=== PATIENT | female | born 1955 | race Caucasian/White ===

== ENCOUNTER → 2016-07-22 | Outpatient (CLI) | payer BC ==
[~2016-07-22] MED LIST: CHOLCAP5 PO; CIPR-255 PO; FINA5TAB PO; HYDR-5688 PO; LACT1CAP6 PO; LEVO200T PO; MELO7.5T5 PO; OMEP20TA PO; ONDA8TAB6 PO; TAMS0.4C38 PO; TRAM-10 PO; TRAZ50TA35 PO
== END | disposition home or self-care (01) ==
LOC: C.PAPS 10:16
PROVIDERS: ATTEND Obstetrics & Gynecology
DX: Z01.419 Encounter for gynecological examination (general) (routine) without abnormal findings (principal)

== ENCOUNTER → 2016-08-27 | Outpatient (CLI) | payer BC ==
--- NOTE | 2016-08-28 14:24 | MAMMOGRAPHY REPORT ---
BILATERAL DIGITAL SCREENING MAMMOGRAM TOMOSYNTHESIS WITH CAD: 08/27/2016 CLINICAL HISTORY: Routine screening. Patient has no complaints. TECHNIQUE: Breast tomosynthesis in addition to standard 2D mammography was performed. Current study was also evaluated with a Computer Aided Detection (CAD) system. COMPARISON: Comparison is made to exams dated: 05/03/2015 mammogram, 05/01/2014 mammogram, 02/17/2013 ma mmogram, 12/31/2010 mammogram, 12/24/2009 mammogram - [facility], and 12/07/2008. BREAST COMPOSITION: There are scattered areas of fibroglandular density in both breasts. FINDINGS: There are stable punctate benign-appearing microcalcifications in the superior aspect of e ach breast. Stable asymmetries in the lateral right breast. No developing mass, architectural disto rtion or cluster of suspicious microcalcifications is seen in either breast. IMPRESSION: ACR BI-RADS CATEGORY 2: BENIGN There is no mammographic evidence of malignancy. A 1 year screening mammogram is recommended. The pa tient will receive written notification of the results. Approximately 10% of breast cancers are not detected with mammography. A negative mammographic report should not delay biopsy if a clinically suggestive mass is present. Shirley Hunt M.D. ay/:08/27/2016 16:18:31 Rail Detector Car Operator: Tahmina PRUITT(Erasto)(Cezar), [facility] letter sent: Normal 1/2 BI-RADS Code: ACR BI-RADS Category 2: Benign
== END | disposition home or self-care (01) ==
LOC: C.MAMM 07:09
PROVIDERS: ATTEND Obstetrics & Gynecology
DX: Z12.31 Encounter for screening mammogram for malignant neoplasm of breast (principal); R92.0 Mammographic microcalcification found on diagnostic imaging of breast

== ENCOUNTER 2017-03-01 21:44 | Emergency (ER) | payer BC ==
[~2017-03-01] VITALS: Ht 154.9 cm; Wt 101.5 kg
[~2017-03-01 21:44] MED LIST changes: -CIPR-255 PO; -HYDR-5688 PO; -MELO7.5T5 PO; -TAMS0.4C38 PO; -TRAM-10 PO
[2017-03-01 21:47] VITALS: TEMP 36.9; Ht 154.9 cm; Wt 101.5 kg
[2017-03-01] MEDS ORDERED: SODIUM CHLORIDE 0.9% 1000ML 1,000 ML IV STA (22:09)
[2017-03-01] MEDS ORDERED: HYDROmorphone INJ 0.5 MG/0.5 ML SYR IV STA (22:09)
[2017-03-01] MEDS ORDERED: ONDANSETRON INJ 2 MG/ML 2 ML VIAL IV STA (22:09)
[2017-03-01 22:38] LABS: BASO % 0.6 %; BASO ABS # 0.07 K/uL (0-0.2); COMPLETE YES; EOS % 0.8 %; HEMATOCRIT 43.7 % (37-47); IG% 0.4 %; LYMPH % 17.8 %; LYMPH ABS # 2.21 K/uL (1.2-3.4); MEAN CELL VOLUME 88.1 fL (80-100); MEAN CORPUSCULAR HEMOGLOBIN 29.2 pg (25-34); MEAN CORPUSCULAR HGB CONC 33.2 g/dl (32-36); MEAN PLATELET VOLUME 9.4 fL (7.4-10.4); MONO % 7.3 %; NEUT % 73.1 %; PLATELET COUNT 307 K/uL (130-400); RED BLOOD COUNT 4.96 M/uL (4.2-5.4); WHITE BLOOD COUNT 12.44 K/uL (4.8-10.8)
--- NOTE | 2017-03-01 22:38 | EMERGENCY ROOM VISIT NOTE ---
History Report prepared by Venancio: Afia Davies Under the Supervision of: Dr. Nishant Reza D.O. First contact with patient: 22:03 Chief Complaint: KIDNEY STONE Stated Complaint: KIDNEY STONE History of Present Illness The patient is a 61 year old female who presents to the Emergency Room with complaints of constant right flank pain starting 1999 today. The patient had been having some back pain over the past 2 days. She thought this pain was due to exertion. This morning she woke up with bladder pain. She found that her urine was brown. She went to the walk in clinic around 1100 today. She was given Mobic, Zofran, and Flomax. She had an ultrasound, but has not yet learned of the results. Around 1999, she started having constant 10/10 right flank pain. She reports nausea. She has a history of kidney stones. Her current pain feels like a kidney stone. Source of History: patient Onset: 1999 Position: back (right flank) Symptom Intensity: 10/10 Quality: other (kidney stone pain) Timing: constant Associated Symptoms: + nausea, + urinary symptoms Review of Systems See HPI for pertinent positives and negatives. A total of ten systems were reviewed and were otherwise negative. Past Medical & Surgical Medical Problems: (1) Kidney stones Surgical Problems: (1) Post-operative state (2) S/P cholecystectomy (3) S/P hysterectomy Family History FH: cancer FH: heart disease Hypertension Social History Smoking Status: Never Smoker Alcohol Use: none Drug Use: none Marital Status: Housing Status: lives with significant other Occupation Status: employed Current/Historical Medications Scheduled Cholecalciferol (Vitamin D3), 5,000 UNITS PO DAILY Finasteride (Proscar), 5 MG PO HS Levothyroxine Sodium (Synthroid), 200 MCG PO HS Meloxicam (Mobic), 1 TAB PO DAILY Omeprazole (Omeprazole), 20 MG PO BID Trazodone Hcl (Trazodone), 50 MG PO HS Scheduled PRN Ondansetron Hcl (Zofran), 8 MG PO Q8 PRN for Nausea Tramadol (Ultram), 50 MG PO QD PRN for Pain Miscellaneous Medications Tamsulosin Hcl (Flomax), 0.4 MG PO Allergies Coded Allergies: NSAIDs (Verified Allergy, Severe, GI SYMPTOMS, 03/01/17) Aspirin (Verified Adverse Reaction, Mild, UPSET STOMACH, 03/01/17) Physical Exam Vital Signs Date Time Temp Pulse Resp B/P (MAP) Pulse Ox O2 Delivery O2 Flow Rate FiO2 03/01/17 21:47 36.9 70 20 151/90 94 Room Air Physical Exam GENERAL: Awake, alert, writhing in pain, holding right back. HENT: Normocephalic, atraumatic. Oropharynx unremarkable. EYES: Normal conjunctiva. Sclera non-icteric. NECK: Supple. No nuchal rigidity. FROM. No JVD. RESPIRATORY: Clear to auscultation. CARDIAC: Regular rate, normal rhythm. Extremities warm and well perfused. Pulses equal. ABDOMEN: Soft, non-distended. No tenderness to palpation. No rebound or guarding. No masses. RECTAL: Deferred. MUSCULOSKELETAL: Chest examination reveals no tenderness. The back is symmetrical on inspection without obvious abnormality. There is CVA tenderness to palpation. No joint edema. LOWER EXTREMITIES: Calves are equal size bilaterally and non-tender. No edema. No discoloration. NEURO: Normal sensorium. No sensory or motor deficits noted. SKIN: No rash or jaundice noted. Medical Decision & Procedures ER Provider Diagnostic Interpretation: Radiology results as stated below per my review and radiologist interpretation: CT SCAN OF THE ABDOMEN AND PELVIS WITHOUT CONTRAST CLINICAL HISTORY: Right flank pain hematuria COMPARISON STUDY: Ultrasound dated 03/01/2017, CT scan dated 01/03/2016 TECHNIQUE: CT scan of the abdomen and pelvis was performed from the lung bases to the proximal femurs. Images are reviewed in the axial, sagittal, and coronal planes. IV contrast was not administered for this examination. A dose lowering technique was utilized adhering to the principles of ALARA. CT DOSE: 1416.91 mGy.cm FINDINGS: Lower chest: The heart is normal in size and configuration, without pericardial effusion. The lung bases and pleural spaces are clear. Liver: The unenhanced liver is normal in size, contour, and attenuation. There is no intrahepatic biliary ductal dilatation. Gallbladder: Not visualized and presumed surgically absent. Stable mild dilatation of the common bile duct Spleen: Normal in size and attenuation. Pancreas: Unremarkable. Adrenal glands: Unremarkable. Kidneys: There is a punctate nonobstructing lower pole right renal calculus. There is right-sided hydronephrosis and perinephric edema. There is right-sided ureteral dilatation. There is a 3 mm distal right ureteral calculus. Bowel: There are no transition zones indicate bowel obstruction. The appendix appears normal. There is no acute diverticulitis. There are scattered colonic diverticula present. Peritoneum: There is no intraperitoneal free air or abdominal ascites. 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 Adenopathy: None. A hypodense structure located just superior to the left inguinal canal, is likely postsurgical. Pelvic viscera: The uterus appears surgically absent Skeletal structures: No destructive osseous lesions are seen. IMPRESSION: 1. Right-sided hydronephrosis and hydroureter. 3 mm obstructing distal right ureteral calculus 2. No evidence of bowel obstruction. No evidence of free air 3. No evidence of acute appendicitis. No evidence of acute diverticulitis 4. Stable fat-containing left-sided spigelian hernia Electronically signed by: Ronnell Frausto M.D. 03/01/2017 10:41 PM Dictated Date/Time: 03/01/2017 10:34 PM Laboratory Results 03/01/17 22:20 Red Blood Count 4.96, Mean Corpuscular Volume 88.1, Mean Corpuscular Hemoglobin 29.2, Mean Corpuscular Hemoglobin Concent 33.2, Mean Platelet Volume 9.4, Neutrophils (%) (Auto) 73.1, Lymphocytes (%) (Auto) 17.8, Monocytes (%) (Auto) 7.3, Eosinophils (%) (Auto) 0.8, Basophils (%) (Auto) 0.6, Neutrophils # (Auto) 9.10, Lymphocytes # (Auto) 2.21, Monocytes # (Auto) 0.91, Eosinophils # (Auto) 0.10, Basophils # (Auto) 0.07 03/01/17 22:20 Test 03/01/17 22:20 White Blood Count 12.44 K/uL (4.8-10.8) Red Blood Count 4.96 M/uL (4.2-5.4) Hemoglobin 14.5 g/dL (12.0-16.0) Hematocrit 43.7 % (37-47) Mean Corpuscular Volume 88.1 fL (80-100) Mean Corpuscular Hemoglobin 29.2 pg (25-34) Mean Corpuscular Hemoglobin Concent 33.2 g/dl (32-36) Platelet Count 307 K/uL (130-400) Mean Platelet Volume 9.4 fL (7.4-10.4) Neutrophils (%) (Auto) 73.1 % Lymphocytes (%) (Auto) 17.8 % Monocytes (%) (Auto) 7.3 % Eosinophils (%) (Auto) 0.8 % Basophils (%) (Auto) 0.6 % Neutrophils # (Auto) 9.10 K/uL (1.4-6.5) Lymphocytes # (Auto) 2.21 K/uL (1.2-3.4) Monocytes # (Auto) 0.91 K/uL (0.11-0.59) Eosinophils # (Auto) 0.10 K/uL (0-0.5) Basophils # (Auto) 0.07 K/uL (0-0.2) RDW Standard Deviation 44.5 fL (36.4-46.3) RDW Coefficient of Variation 13.8 % (11.5-14.5) Immature Granulocyte % (Auto) 0.4 % Immature Granulocyte # (Auto) 0.05 K/uL (0.00-0.02) Urine Color ORANGE Urine Appearance SLIGHTLY CLOUDY (CLEAR) Urine pH (4.5-7.5) Urine Specific [place] 1.029 (1.000-1.030) Urine Protein (NEG) Urine Glucose (UA) (NEG) Urine Ketones (NEG) Urine Occult Blood (NEG) Urine Nitrite (NEG) Urine Bilirubin (NEG) Urine Urobilinogen (NEG) Urine Leukocyte Esterase (NEG) Urine RBC >30 /hpf (0-4) Urine WBC 5-10 /hpf (0-5) Urine Epithelial Cells >30 /lpf (0-5) Urine Bacteria 1+ (NEG) Anion Gap 8.0 mmol/L (3-11) Est Creatinine Clear Calc Drug Dose 61.9 ml/min Estimated GFR () 65.8 Estimated GFR (Non- 56.8 BUN/Creatinine Ratio 11.7 (10-20) Calcium Level 9.3 mg/dl (8.5-10.1) Laboratory results reviewed by me Medications Administered Medications (Trade) Dose Ordered Sig/Tosin Route Start Time Stop Time Status Last Admin Dose Admin Sodium Chloride 1,000 ml @ 999 mls/hr Q1H1M STAT IV 03/01/17 22:09 03/01/17 23:09 12/4/17 22:21 999 MLS/HR Hydromorphone HCl (Dilaudid Inj) 0.5 mg NOW STAT IV 03/01/17 22:09 03/01/17 22:11 DC 03/01/17 22:09 0.5 MG Ondansetron HCl (Zofran Inj) 4 mg NOW STAT IV 03/01/17 22:09 03/01/17 22:11 DC 03/01/17 22:21 4 MG ED Course 2205: The patient was evaluated in room A10. A complete history and physical exam was performed. 2208: Zofran Inj 4 mg IV, Dilaudid Inj 0.5 mg IV, NSS 1000 ml @ 999 mls/hr IV. 2302: Cipro Tab 500 mg PO. 2304: I reevaluated the patient. Discussed results and discharge instructions: she verbalized understanding and agreement. The patient is ready for discharge. Medical Decision Differential diagnoses include but are not limited to; ureterolithiasis, musculoskeletal back spasms, UTI, pyelonephritis, dehydration. Patient resting in no distress on repeat examination at 2304. Patient has a 3 mm kidney stone. I discussed evaluation with the patient will add [place] and Cipro. And will refer to urology. I've answered all the patient's questions at bedside Medication Reconcilliation Current Medication List: was personally reviewed by me Blood Pressure Screening Patient's blood pressure: Elevated blood pressure Blood pressure disposition: Elevated BP felt to be situational Impression Primary Impression: Ureterolithiasis Scribe Attestation The scribe's documentation has been prepared under my direction and personally reviewed by me in its entirety. I confirm that the note above accurately reflects all work, treatment, procedures, and medical decision making performed by me. Departure Information Dispostion Home / Self-Care Prescriptions Hydrocodone/Acetaminophen 5MG/325MG ([place] 5MG/325MG) Tab 1 TABLET PO Q4H Y for Pain, #10 TAB Prov: Nishant Reza, DO 03/01/17 Ciprofloxacin Hcl (CIPRO) 500 Mg Tab 500 MG PO BID, #14 TAB Prov: Nishant Reza, DO 03/01/17 Referrals Funmi Wallace M.D. (PCP) Ben Ojeda MD, Urology Patient Instructions Kidney Stones - [facility]
--- NOTE | 2017-03-01 22:42 | DIAGNOSTIC IMAGING REPORT ---
CT SCAN OF THE ABDOMEN AND PELVIS WITHOUT CONTRAST CLINICAL HISTORY: Right flank pain hematuria COMPARISON STUDY: Ultrasound dated 03/01/2017, CT scan dated 01/03/2016 TECHNIQUE: CT scan of the abdomen and pelvis was performed from the lung bases to the proximal femurs. Images are reviewed in the axial, sagittal, and coronal planes. IV contrast was not administered for this examination. A dose lowering technique was utilized adhering to the principles of ALARA. CT DOSE: 1416.91 mGy.cm FINDINGS: Lower chest: The heart is normal in size and configuration, without pericardial effusion. The lung bases and pleural spaces are clear. Liver: The unenhanced liver is normal in size, contour, and attenuation. There is no intrahepatic biliary ductal dilatation. Gallbladder: Not visualized and presumed surgically absent. Stable mild dilatation of the common bile duct Spleen: Normal in size and attenuation. Pancreas: Unremarkable. Adrenal glands: Unremarkable. Kidneys: There is a punctate nonobstructing lower pole right renal calculus. There is right-sided hydronephrosis and perinephric edema. There is right-sided ureteral dilatation. There is a 3 mm distal right ureteral calculus. Bowel: There are no transition zones indicate bowel obstruction. The appendix appears normal. There is no acute diverticulitis. There are scattered colonic diverticula present. Peritoneum: There is no intraperitoneal free air or abdominal ascites. 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 Adenopathy: None. A hypodense structure located just superior to the left inguinal canal, is likely postsurgical. Pelvic viscera: The uterus appears surgically absent Skeletal structures: No destructive osseous lesions are seen. IMPRESSION: 1. Right-sided hydronephrosis and hydroureter. 3 mm obstructing distal right ureteral calculus 2. No evidence of bowel obstruction. No evidence of free air 3. No evidence of acute appendicitis. No evidence of acute diverticulitis 4. Stable fat-containing left-sided spigelian hernia Electronically signed by: Ronnell Frausto M.D. 03/01/2017 10:41 PM Dictated Date/Time: 03/01/2017 10:34 PM
[2017-03-01 22:43] LABS: MANUAL MICROSCOPIC REQUIRED? YES; REVIEW REQ? NO; SULFASALICYLIC ACID POS (NEG); URINE APPEARANCE SLIGHTLY CLOUDY (CLEAR); URINE COLOR ORANGE; URINE SPECIFIC GRAVITY 1.029 (1.000-1.030)
[2017-03-01 22:50] LABS: URINE BACTERIA 1+ (NEG); URINE RBC >30 /hpf (0-4)
[2017-03-01 23:00] LABS: BUN/CREATININE RATIO 11.7 (10-20); CALCIUM 9.3 mg/dl (8.5-10.1); CREATININE 1.07 mg/dl (0.60-1.20); POTASSIUM 3.7 mmol/L (3.5-5.1)
[2017-03-01] MEDS ORDERED: MELO7.5T5 PO (23:01)
[2017-03-01] MEDS ORDERED: TRAM-10 PO (23:01)
[2017-03-01] MEDS ORDERED: TAMS0.4C38 PO (23:01)
[2017-03-01] MEDS ORDERED: CIPROFLOXACIN 500 MG TAB PO STA (23:03)
[2017-03-01] MEDS ORDERED: CIPR-255 PO (23:10)
[2017-03-01] MEDS ORDERED: HYDR-5688 PO (23:10)
[2017-03-01] MEDS ORDERED: NORCO 5/325MG HOME PACK PO ONE (23:15)
[2017-03-01 23:47] VITALS: BP 146/86; PULSE 76; O2SAT 94
== END 2017-03-01 23:46 | disposition home or self-care (01) ==
LOC: C.EDB 21:45 → C.EDA 23:46
DX: N20.0 Calculus of kidney (principal); Z87.442 Personal history of urinary calculi; Z90.710 Acquired absence of both cervix and uterus; Z90.49 Acquired absence of other specified parts of digestive tract; Z79.899 Other long term (current) drug therapy; Z88.6 Allergy status to analgesic agent; Z88.8 Allergy status to other drugs, medicaments and biological substances; Z80.9 Family history of malignant neoplasm, unspecified; Z82.49 Family history of ischemic heart disease and other diseases of the circulatory system

== ENCOUNTER → 2017-03-01 | Outpatient (CLI) | payer BC ==
--- NOTE | 2017-03-01 11:51 | DIAGNOSTIC IMAGING REPORT ---
(RENAL)RETROPERITON COMP HISTORY: RT FLANK PAIN, HEMATURIA COMPARISON: 02/12/2012 FINDINGS: Right kidney: No hydronephrosis. No renal calcifications. Mild increase in cortical echogenicity Left kidney: Maximum dimension 9.7 cm. No evidence for hydronephrosis. Mild increase in cortical echogenicity Bladder: No bladder wall thickening. The bilateral ureteral jets were identified. IMPRESSION: 1. Increased renal cortical echogenicity bilaterally suggesting nonobstructive renal insufficiency. 2. No evidence for obstruction 3. No evidence for hydronephrosis. The above report was generated using voice recognition software. It may contain grammatical, syntax or spelling errors. Electronically signed by: Santo Diaz M.D. 03/01/2017 11:50 AM Dictated Date/Time: 03/01/2017 11:45 AM
== END | disposition home or self-care (01) ==
LOC: C.ULTR 11:12
PROVIDERS: ATTEND Family Medicine
DX: R10.9 Unspecified abdominal pain (principal); R31.9 Hematuria, unspecified; N28.9 Disorder of kidney and ureter, unspecified

== ENCOUNTER → 2017-03-08 | Outpatient (CLI) | payer BC ==
[~2017-03-08] MED LIST changes: +CIPR-255 PO; +HYDR-5688 PO; -LACT1CAP6 PO; +MELO7.5T5 PO; +SERT25TA PO; +TAMS0.4C38 PO; +TRAM-10 PO; +ZNT/150 PO
--- NOTE | 2017-03-08 12:53 | DIAGNOSTIC IMAGING REPORT ---
KUB CLINICAL HISTORY: N20.0 [id number] COMPARISON STUDY: CT scan dated 03/01/2017 FINDINGS: There is no pathologic bowel dilatation. No renal calculi are visualized. There are multiple nonspecific pelvic basin calcifications. One of these may correspond to the recently described distal right ureteral calculus. IMPRESSION: 1. No evidence of pathologic bowel dilatation 2. Nonspecific pelvic basin calcifications. One of these may correspond to the recently described distal right ureteral calculus. Electronically signed by: Ronnell Frausto M.D. 03/08/2017 12:52 PM Dictated Date/Time: 03/08/2017 12:50 PM
--- NOTE | 2017-03-08 15:40 | DIAGNOSTIC IMAGING REPORT ---
CHEST 2 VIEWS ROUTINE CLINICAL HISTORY: N20.1 Ureteral [id number] COMPARISON STUDY: 01/03/2016 FINDINGS: The cardiac and mediastinal contours are normal. There is no evidence of focal pulmonary consolidation. There is no evidence of failure. No pleural effusions are visualized.[ IMPRESSION: No active disease in the chest. Electronically signed by: Ronnell Frausto M.D. 03/08/2017 3:38 PM Dictated Date/Time: 03/08/2017 3:38 PM
== END | disposition home or self-care (01) ==
LOC: C.RAD 12:20
PROVIDERS: ATTEND Nurse Practitioner Adult Health
DX: N20.1 Calculus of ureter (principal); R93.8 Abnormal findings on diagnostic imaging of other specified body structures

== ENCOUNTER → 2017-03-08 | Outpatient (CLI) | payer BC | END | disposition home or self-care (01) | LOC: C.LABSPEC 14:49 | PROVIDERS: ATTEND Nurse Practitioner Adult Health | DX: N20.1 Calculus of ureter (principal) ==

== ENCOUNTER → 2017-03-11 | Outpatient (CLI) | payer BC ==
[~2017-03-11] MED LIST changes: -MELO7.5T5 PO
--- NOTE | 2017-03-11 16:27 | DIAGNOSTIC IMAGING REPORT ---
KUB HISTORY: URETERAL STONE COMPARISON: KUB 03/08/2017. FINDINGS: The bowel gas pattern is unremarkable. There are no dilated loops of small bowel to suggest an obstruction. The 3 mm calcification within the right deep pelvis seen on the prior study is no longer present and likely represents interval passage of the distal right ureteral stone. A few additional punctate calcifications in the deep pelvis are consistent with phleboliths. No renal calculi identified by conventional radiographic technique. No pneumoperitoneum or pneumatosis. IMPRESSION: No renal or ureteral stones. The 3 mm calcification within the right deep pelvis seen on the prior study is no longer present consistent with passage of the distal ureter ureteral stone. Electronically signed by: Parth Azar M.D. 03/11/2017 4:26 PM Dictated Date/Time: 03/11/2017 4:22 PM
== END | disposition home or self-care (01) ==
LOC: C.RAD 15:24
PROVIDERS: ATTEND Nurse Practitioner Adult Health
DX: N20.1 Calculus of ureter (principal)

== ENCOUNTER → 2017-03-12 | Day surgery (SDC) | payer BC ==
[2017-03-10 07:35] VITALS: BMI 41.0
[2017-03-11 09:40] VITALS: Ht 154.9 cm; Wt 99.1 kg
--- NOTE | 2017-03-11 10:06 | PAT Medication Instructions ---
Service Date Mar 11, 2017. Current Home Medication List Cholecalciferol (Vitamin D3), 5,000 UNITS PO DAILY Ciprofloxacin Hcl (Cipro), 500 MG PO BID Finasteride (Proscar), 5 MG PO HS Hydrocodone/Acetaminophen 5MG/325MG ([place] 5MG/325MG), 1 TABLET PO Q4H PRN for Pain Levothyroxine Sodium (Synthroid), 200 MCG PO HS Omeprazole (Omeprazole), 20 MG PO BID Ondansetron Hcl (Zofran), 8 MG PO Q8 PRN for Nausea Ranitidine Hcl (Zantac), 150 MG PO QAM Sertraline (Zoloft), 25 MG PO QAM Tamsulosin Hcl (Flomax), 0.4 MG PO HS Tramadol (Ultram), 50 MG PO QD PRN for Pain Trazodone Hcl (Trazodone), 50 MG PO HS Medication Instructions For Your Scheduled Surgery - Hold the following medications the morning of surgery: Cholecalciferol (Vitamin D3), 5,000 UNITS PO DAILY Ranitidine Hcl (Zantac), 150 MG PO QAM - Take the following medications the morning of surgery with a sip of water: Tramadol (Ultram), 50 MG PO QD PRN for Pain (okay to take up to 4 hours prior to surgery if needed) Sertraline (Zoloft), 25 MG PO QAM .Omeprazole (Omeprazole), 20 MG PO BID Ondansetron Hcl (Zofran), 8 MG PO Q8 PRN for Nausea (if needed) Hydrocodone/Acetaminophen 5MG/325MG ([place] 5MG/325MG), 1 TABLET PO Q4H PRN for Pain (okay to take up to 4 hours prior to surgery if needed) Ciprofloxacin Hcl (Cipro), 500 MG PO BID - Take the following medications as scheduled the night before surgery: Trazodone Hcl (Trazodone), 50 MG PO HS Tramadol (Ultram), 50 MG PO QD PRN for Pain Tamsulosin Hcl (Flomax), 0.4 MG PO HS Omeprazole (Omeprazole), 20 MG PO BID Ondansetron Hcl (Zofran), 8 MG PO Q8 PRN for Nausea Levothyroxine Sodium (Synthroid), 200 MCG PO HS Hydrocodone/Acetaminophen 5MG/325MG ([place] 5MG/325MG), 1 TABLET PO Q4H PRN for Pain Finasteride (Proscar), 5 MG PO HS Ciprofloxacin Hcl (Cipro), 500 MG PO BID If you have any questions please call us at [phone] or [phone] or [phone]
[2017-03-11 10:51] LABS: HEMATOCRIT 40.7 % (37-47); HEMOGLOBIN 13.4 g/dL (12.0-16.0); MEAN CELL VOLUME 88.7 fL (80-100); MEAN CORPUSCULAR HEMOGLOBIN 29.2 pg (25-34); MEAN CORPUSCULAR HGB CONC 32.9 g/dl (32-36); MEAN PLATELET VOLUME 9.5 fL (7.4-10.4); PLATELET COUNT 359 K/uL (130-400); RED CELL DISTRIBUTION WIDTH CV 13.8 % (11.5-14.5); RED CELL DISTRIBUTION WIDTH SD 44.8 fL (36.4-46.3); WHITE BLOOD COUNT 7.65 K/uL (4.8-10.8)
[~2017-03-12] VITALS: Ht 154.9 cm; Wt 99.1 kg
[~2017-03-12] MED LIST changes: +CEPH500C2 PO; +CHOL20009 PO; +CIPROFLOXACIN 400MG / D5W IV SCH; +LACTATED RINGER'S 1000ML 1,000 ML IV SCH; +ONDA-170 PO; -ONDA8TAB6 PO
== END | disposition home or self-care (01) ==
LOC: EDSTATUS 10:00 → C.PAT 13:35
PROVIDERS: ATTEND Urology
DX: N20.1 Calculus of ureter (principal)

== ENCOUNTER → 2017-04-12 | Outpatient (CLI) | payer OTHER ==
[~2017-04-12] MED LIST changes: -CEPH500C2 PO; -CHOL20009 PO; -CIPROFLOXACIN 400MG / D5W IV SCH; -LACTATED RINGER'S 1000ML 1,000 ML IV SCH; -ONDA-170 PO; +ONDA8TAB6 PO
== END | disposition home or self-care (01) ==
LOC: C.LABSPEC 16:55
PROVIDERS: ATTEND Nurse Practitioner Adult Health
DX: N20.1 Calculus of ureter (principal); N20.0 Calculus of kidney

== ENCOUNTER 2024-04-25 14:21 | Inpatient (IN) ==
--- NOTE | 2024-04-25 15:00 | XRay Report ---
XR hip RT min 2V CLINICAL HISTORY: fall COMPARISON: None FINDINGS: No fracture or dislocation. There are minimal degenerative changes at the right hip. IMPRESSION: No fracture seen. ACT 112: Negative or not required by law. Electronically signed by: Nishant Rm M.D. 04/25/2024 2:59 PM
[2024-04-25 15:19] LABS: Basophils # (auto) 0.14 K/uL (0.00-0.20); Basophils % (auto) 0.7 %; Eosinophils # (auto) 0.02 K/uL (0.00-0.50); Eosinophils % (auto) 0.1 %; Hematocrit (blood only) 49.6 % (37.0-47.0); Hemoglobin 16.7 g/dl (12.0-16.0); Immature Granulocytes # (auto) 0.09 K/uL (0.01-0.20); Immature Granulocytes % (auto) 0.5 %; Lymphocytes % (auto) 7.8 %; Mean Corpuscular Hemoglobin 29.1 pg (25.0-34.0); Mean Corpuscular Hgb Conc 33.7 g/dL (32.0-36.0); Mean Corpuscular Volume 86.4 fL (80.0-100.0); Mean Platelet Volume 9.1 fL (9.4-12.4); Monocytes # (auto) 1.12 K/uL (0.11-0.59); Monocytes % (auto) 5.8 %; Neutrophils # (auto) 16.31 K/uL (1.40-6.50); Neutrophils % (auto) 85.1 %; Platelet Count 460 K/uL (130-400); RDW Coefficient of Variation 13.2 % (11.5-14.5); RDW Standard Deviation 41.1 fL (36.4-46.3); Red Blood Count 5.74 M/uL (4.20-5.40); White Blood Count 19.18 K/ul (4.8-10.8)
[2024-04-25 15:33] LABS: Alanine Aminotransferase 24 U/L (7-52); Albumin Globulin Ratio 1.5 (0.9-2); Albumin Level 4.8 gm/dl (3.4-5.0); Alkaline Phosphatase 85 U/L (34-104); Anion Gap 12 (3-11); Aspartate Aminotransferase 25 U/L (13-39); BUN Creatinine Ratio 17.5 (10-20); Bilirubin,Total 1.3 mg/dl (0.2-1.0); Blood Urea Nitrogen 18 mg/dl (6-23); Calcium 10.6 mg/dl (8.6-10.3); Carbon Dioxide 28 mmol/L (21-32); Chloride 100 mmol/L (98-107); Globulin 3.2 gm/dl (2.5-4.0); Glucose 136 mg/dl (70-99(Fasting)); Sodium 140 mmol/L (136-145)
[2024-04-25] MEDS: OPTIRAY 320 100ml IV ONE (16:04)
[2024-04-25 16:35] LABS: Influenza A virus by PCR Negative (Neg); Influenza B virus by PCR Negative (Neg); RSV by PCR Negative (Neg); SARS CoV2 RNA(COVID-19) Ceph NEGATIVE (Negative)
--- NOTE | 2024-04-25 16:35 | CT Scan Report ---
INDICATION: Pain and injury. COMPARISON: No relevant priors available TECHNIQUE: Axial CT images of the cervical spine were obtained without IV contrast administration. Coronal and sagittal reformations were reviewed. FINDINGS: Cervical vertebral body heights and alignment are maintained. No acute fracture or traumatic subluxation. Mild multilevel disc space narrowing most pronounced at mid cervical levels. Disc bulges at C4-C5, C5-C6 and C6-C7 with mild effacement of the ventral aspect of thecal sac. Multilevel neural foraminal narrowing, right worse than left. Neck soft tissues and lung apices appear grossly unremarkable. IMPRESSION: Mild multilevel degenerative changes. No acute fracture. Electronically signed by Jose R Vasquez 04-25-2024 4:35 PM
--- NOTE | 2024-04-25 16:35 | CT Scan Report ---
INDICATION: Abdominal pain. COMPARISON: CT from 03/01/2017. TECHNIQUE: Axial CT images of the abdomen and pelvis were obtained following IV contrast administration. Coronal and sagittal reformations were reviewed. FINDINGS: Visualized lung bases appear unremarkable. The gallbladder is surgically absent. The liver, spleen, pancreas and adrenal glands appear unremarkable. No hydronephrosis. Subcentimeter left renal cyst noted. Mildly dilated small bowel loops in the midabdomen with scattered air-fluid levels. No pneumatosis/portal venous gas or free air. No evidence of colitis or appendicitis. No drainable fluid collection. Negative for abdominal aortic aneurysm or dissection. The urinary bladder appears unremarkable. No acute osseous abnormality evident. IMPRESSION: Mildly dilated small bowel loops in the midabdomen could relate to ileus or early small bowel obstruction. No pneumatosis/portal venous gas or free air follow-up recommended. Electronically signed by Jose R Vasquez 04-25-2024 4:35 PM
--- NOTE | 2024-04-25 16:35 | CT Scan Report ---
INDICATION: Pain and injury. COMPARISON: No relevant priors available TECHNIQUE: Axial CT images of the head were obtained without IV contrast. Coronal and sagittal reformations were reviewed. FINDINGS: [place]-white differentiation is relatively preserved. No mass, mass effect or midline shift. Chronic ischemic white matter changes. Focal nonspecific 5 mm calcification in the left tentorium. No evidence of acute large territorial infarction or acute intracranial hemorrhage. Ventricles appear normal in size. Basal cisterns are patent. No depressed calvarial fracture. IMPRESSION: No acute intracranial process. Electronically signed by Jose R Vasquez 04-25-2024 4:35 PM
--- NOTE | 2024-04-25 16:35 | XRay Report ---
INDICATION: Pain and injury. TECHNIQUE: 2 views of the right knee. COMPARISON: No relevant priors. FINDINGS: No acute fracture or dislocation. No lytic or blastic bony lesions seen. Right knee hardware appears intact. Soft tissues appear unremarkable. No joint effusion. IMPRESSION: No acute osseous abnormality evident. Electronically signed by Jose R Vasquez 04-25-2024 4:35 PM
--- NOTE | 2024-04-25 16:56 | Emergency Department Note ---
History of Present Illness General Chief complaint: Fall Stated complaint: NIROVIRUS, FALLDOWN STEPS, RT SIDE, SYNCOPE Time Seen by Provider: 04/25/24 15:09 History of Present Illness Provider complaint: Syncope 68-year-old female presents emergency department for syncope. Patient reports that beginning on Wednesday she started having nausea vomiting and diarrhea. She states she was having diarrhea for last 3 days. No melena hematochezia. No hematemesis coffee-ground emesis or bilious vomiting. Patient states she thought she had norovirus because many of her other contacts had. She states she started feeling better on Wednesday. She states that today she had a mechanical fall slipping on a step and fell and landed on her right hip. Patient is currently reporting right hip pain. She reports that after she had her fall she walked up the stairs and then the next thing she knew she was on the floor and her was waking her up. Patient states she passed out. Patient does state that she hit her head on a basket. No blood thinners. Home Medications Medication Instructions Recorded Confirmed Type cholecalciferol (vitamin D3) 50 100 mcg PO HS 12/05/19 01/28/23 History mcg (2,000 unit) capsule (Vitamin D3) finasteride 5 mg tablet 5 mg PO HS 12/05/19 01/28/23 History gabapentin 300 mg tablet 300 mg PO HS 12/05/19 01/28/23 History levothyroxine 200 mcg capsule 200 mcg PO QAM 12/05/19 01/28/23 History pantoprazole 40 mg tablet,delayed 40 mg PO BID 12/05/19 01/28/23 History release (Protonix) trazodone PO 01/28/23 01/28/23 History Allergies Allergy/AdvReac Type Severity Reaction Status Date / Time NSAIDS (Non-Steroidal Allergy Severe GI SYMPTOMS Verified 01/28/23 09:01 Anti-Inflamma aspirin AdvReac Mild UPSET Verified 01/28/23 09:01 STOMACH Past Med/Surg History Problem List Ileus (Acute) Syncope (Acute) Encounter for annual routine gynecological examination Arthritis of carpometacarpal (CMC) joint of both thumbs Ventral hernia Nocturnal hypoxia (Chronic) "on 2L NC at night" Endometrial cancer (Chronic) surgical intervention - no chemo . radiation Depression (Chronic) MELIA on CPAP (Chronic) Hypothyroidism (Chronic) Urge and stress incontinence (Chronic) Nephrolithiasis (Chronic) hx of Vitamin D deficiency (Chronic) S/P GENEVIEVE (total abdominal hysterectomy) (Chronic) BSO, 2016 Stage 1A endometrial cancer. S/P knee replacement (Chronic) right and left S/P carpal tunnel release (Chronic) right and left S/P herniorrhaphy (Chronic) inguinal and abdominal S/P vicky (Chronic) S/P (Chronic) Medical History GERD (gastroesophageal reflux disease) Barretts esophagus Surgical History S/P laparoscopic procedure laser of endometriosis x 8 times. H/O wisdom tooth extraction Hx of dilation and curettage Social History Smoking Status: Never smoker Second Hand Exposure: No; Do You Dip or Chew Tobacco: No; Hx Alcohol Use: No Hx Substance Use: No Preferred Language: Pashto Communication Ability: Effective Assessment Clinician Required: No Beliefs That Will Affect Care: None Current Living Situation: Spouse Feels Safe at Home: Yes Assistive Devices: Contacts Physical Exam Vital Signs Vital Signs - 24 hr 04/25/24 14:28 04/25/24 15:16 04/25/24 16:37 Temperature 36.8 C Temperature Source Temporal Artery Scan Pulse Rate 87 95 H Pulse Rate [Apical] 82 Pulse Rhythm Regular Pulse Strength Normal Respiratory Rate 18 18 Respiratory Effort / Characteristics Non-Labored Spontaneous Non-Labored Spontaneous Respiratory Depth Normal Normal Blood Pressure 104/75 Blood Pressure [Right Arm] 131/83 Blood Pressure Mean 84 Blood Pressure Mean [Right Arm] 99 Blood Pressure Position Sitting Blood Pressure Position [Right Arm] Sitting Pulse Oximetry 98 97 Oxygen Delivery Method Room Air Room Air Sepsis Recent Fever Within 48 Hours No Sepsis New/Unexplained Change in Mental Status N/A Sepsis Action Taken by Nursing No Action Required Physical Exam HENT: Exam performed. -Head: Normocephalic and atraumatic. -Right Ear: External ear normal. No mastoid erythema -Left Ear: External ear normal. No mastoid erythema -Mouth/Throat: The oropharynx is clear and moist. No trismus in the jaw. No dental abscesses or uvula swelling. No oropharyngeal exudate or tonsillar abscesses. EYES: Conjunctivae and EOM are normal. Pupils are equal, round, and reactive to light. Right eye exhibits no discharge. Left eye exhibits no discharge. No scleral icterus. NECK: Normal range of motion. Neck supple. No JVD present. No spinous process tenderness present. CV: Normal rate, regular rhythm, normal heart sounds and intact distal pulses. There is no peripheral edema. Palpable radial pulses bue. PULM/CHEST: Effort normal and breath sounds normal. No respiratory distress. No stridor. She has no wheezes. She has no rales. -Chest Wall: She exhibits no tenderness. ABD: The abdomen is soft. There is no tenderness. There is no rebound, no guarding. MUSC/SKEL: Pelvis stable. Pain on palpation of the mid to distal femur with overlying ecchymosis over the area. Full range of motion of the bilateral lower extremities. Compartments of bilateral lower extremity are soft. Palpable DP and PT pulses bilateral lower extremities. NEURO: She is alert and oriented to person, place, and time. She has normal strength. No cranial nerve deficit or sensory deficit. GCS eye subscore is 4. GCS verbal subscore is 5. GCS motor subscore is 6. Cerebellar tests wnl. Course Course 1509: The patient was evaluated in room A12. A complete history and physical exam was performed Cardiac monitoring: An order was placed for continuous cardiac monitoring. The monitor shows a rate of 90 with sinus rhythm interpreted by ar 1653: Vital signs stable.Labs show a white blood cell count of 19.18. Hemoglobin 16.7. Hematocrit 49.6. COVID influenza RSV negative. Imaging shows no acute fracture or dislocation. CT of the abdomen pelvis shows an early SBO versus ileus. Is thought that the patient more likely has ileus given her repeated diarrheal episodes. Stool studies will be ordered for the patient. [facility] episode as well as ileus versus early small bowel obstruction. General surgery Dr. Tellez was made aware of the patient from to be on consult via [facility] text. 170: Dr. Rosalinda Arias texted and stated he reviewed the patient's CT scan and does not think that the patient has an SBO but his PA will evaluate the patient. Administered Medications Sodium Chloride (Nss) 1,000 mls @ 80 mls/hr IV .[id number] GEORGE Stop: 04/26/24 16:59 Last Admin: 04/25/24 17:13 Dose: 80 mls/hr Documented By: CC Discontinued Medications Ioversol (Optiray 320 100ml) 90 ml IV ONCE ONE Stop: 04/25/24 16:05 Last Admin: 04/25/24 16:04 Dose: 90 ml Documented By: JENNIFER Medical Decision Making Laboratory Data Attestation: I reviewed the patient's lab results. 04/25/24 14:56 04/25/24 14:56 Lab Results 04/25/24 04/25/24 Range/Units 14:56 15:49 WBC 19.18 H (4.8-10.8) K/ul RBC 5.74 H (4.20-5.40) M/uL Hgb 16.7 H (12.0-16.0) g/dl Hct 49.6 H (37.0-47.0) % MCV 86.4 (80.0-100.0) fL MCH 29.1 (25.0-34.0) pg MCHC 33.7 (32.0-36.0) g/dL RDW Std Deviation 41.1 (36.4-46.3) fL RDW Coeff of Josh 13.2 (11.5-14.5) % Plt Count 460 H (130-400) K/uL MPV 9.1 L (9.4-12.4) fL Immature Gran % (Auto) 0.5 % Neut % (Auto) 85.1 % Lymph % (Auto) 7.8 % Irion % (Auto) 5.8 % Eos % (Auto) 0.1 % Baso % (Auto) 0.7 % Neut # (Auto) 16.31 H (1.40-6.50) K/uL Lymph # (Auto) 1.50 (1.20-3.40) K/uL Irion # (Auto) 1.12 H (0.11-0.59) K/uL Eos # (Auto) 0.02 (0.00-0.50) K/uL Baso # (Auto) 0.14 (0.00-0.20) K/uL Immature Gran # (Auto) 0.09 (0.01-0.20) K/uL Sodium 140 (136-145) mmol/L Potassium 4.0 (3.5-5.1) mmol/L Chloride 100 (98-107) mmol/L Carbon Dioxide 28 (21-32) mmol/L Anion Gap 12 H (3-11) BUN 18 (6-23) mg/dl Creatinine 1.03 (0.6-1.2) mg/dl Est Cr Clr Drug Dosing Not Reportable eGFR 59.97 BUN/Creatinine Ratio 17.5 (10-20) Glucose 136 H (70-99(Fasting)) mg/dl Calcium 10.6 H (8.6-10.3) mg/dl Total Bilirubin 1.3 H (0.2-1.0) mg/dl AST 25 (13-39) U/L ALT 24 (7-52) U/L Alkaline Phosphatase 85 (34-104) U/L Total Protein 8.0 (6.0-8.3) gm/dl Albumin 4.8 (3.4-5.0) gm/dl Globulin 3.2 (2.5-4.0) gm/dl Albumin/Globulin Ratio 1.5 (0.9-2) SARS-CoV-2 (PCR) NEGATIVE (Negative) Influenza Type A (PCR) Negative (Neg) Influenza Type B (PCR) Negative (Neg) RSV (RT-PCR) Negative (Neg) Imaging Data Attestation: I personally reviewed and interpreted this imaging study as follows: My Impression: Right hip x-ray: No acute fracture or dislocation Right knee x-ray: No acute fracture or dislocation Radiologist's Impression: Hip X-Ray 04/25/24 14:34 XR hip RT min 2V CLINICAL HISTORY: fall COMPARISON: None FINDINGS: No fracture or dislocation. There are minimal degenerative changes at the right hip. IMPRESSION: No fracture seen. ACT 112: Negative or not required by law. Electronically signed by: Nishant Rm M.D. 04/25/2024 2:[address] 04/25/24 15:17 INDICATION: Pain and injury. COMPARISON: No relevant priors available TECHNIQUE: Axial CT images of the cervical spine were obtained without IV contrast administration. Coronal and sagittal reformations were reviewed. FINDINGS: Cervical vertebral body heights and alignment are maintained. No acute fracture or traumatic subluxation. Mild multilevel disc space narrowing most pronounced at mid cervical levels. Disc bulges at C4-C5, C5-C6 and C6-C7 with mild effacement of the ventral aspect of thecal sac. Multilevel neural foraminal narrowing, right worse than left. Neck soft tissues and lung apices appear grossly unremarkable. IMPRESSION: Mild multilevel degenerative changes. No acute fracture. Electronically signed by Jose R Vasquez 04-25-2024 4:[address] 04/25/24 15:17 INDICATION: Pain and injury. COMPARISON: No relevant priors available TECHNIQUE: Axial CT images of the head were obtained without IV contrast. Coronal and sagittal reformations were reviewed. FINDINGS: [place]-white differentiation is relatively preserved. No mass, mass effect or midline shift. Chronic ischemic white matter changes. Focal nonspecific 5 mm calcification in the left tentorium. No evidence of acute large territorial infarction or acute intracranial hemorrhage. Ventricles appear normal in size. Basal cisterns are patent. No depressed calvarial fracture. IMPRESSION: No acute intracranial process. Electronically signed by Jose R Vasquez 04-25-2024 4:35 PM Knee X-Ray 04/25/24 15:17 INDICATION: Pain and injury. TECHNIQUE: 2 views of the right knee. COMPARISON: No relevant priors. FINDINGS: No acute fracture or dislocation. No lytic or blastic bony lesions seen. Right knee hardware appears intact. Soft tissues appear unremarkable. No joint effusion. IMPRESSION: No acute osseous abnormality evident. Electronically signed by Jose R Vasquez 04-25-2024 4:35 PM Abdomen/Pelvis CT 04/25/24 15:37 INDICATION: Abdominal pain. COMPARISON: CT from 03/01/2017. TECHNIQUE: Axial CT images of the abdomen and pelvis were obtained following IV contrast administration. Coronal and sagittal reformations were reviewed. FINDINGS: Visualized lung bases appear unremarkable. The gallbladder is surgically absent. The liver, spleen, pancreas and adrenal glands appear unremarkable. No hydronephrosis. Subcentimeter left renal cyst noted. Mildly dilated small bowel loops in the midabdomen with scattered air-fluid levels. No pneumatosis/portal venous gas or free air. No evidence of colitis or appendicitis. No drainable fluid collection. Negative for abdominal aortic aneurysm or dissection. The urinary bladder appears unremarkable. No acute osseous abnormality evident. IMPRESSION: Mildly dilated small bowel loops in the midabdomen could relate to ileus or early small bowel obstruction. No pneumatosis/portal venous gas or free air follow-up recommended. Electronically signed by LouclydeJose R 04-25-2024 4:35 PM ECG Data Attestation: I personally reviewed and interpreted this ECG as follows: Rate (beats per minute): 93 Rhythm: + normal sinus ECG Intervals/blocks: + Right Bundle branch block ECG ST segments: + Normal ST segments Additional Comments: FL 158 QRS 126 QTc 469. [facility] Narrative 1509: The patient was evaluated in room A12. A complete history and physical exam was performed Cardiac monitoring: An order was placed for continuous cardiac monitoring. The monitor shows a rate of 90 with sinus rhythm interpreted by me 1653: Vital signs stable.Labs show a white blood cell count of 19.18. Hemoglobin 16.7. Hematocrit 49.6. COVID influenza RSV negative. Imaging shows no acute fracture or dislocation. CT of the abdomen pelvis shows an early SBO versus ileus. Is thought that the patient more likely has ileus given her repeated diarrheal episodes. Stool studies will be ordered for the patient. Patient will be admitted to the [facility] hospitalist team given her recent syncopal episode as well as ileus versus early small bowel obstruction. General surgery Dr. Tellez was made aware of the patient from to be on consult via [facility] text. 1707: Dr. Rosalinda Arias texted and stated he reviewed the patient's CT scan and does not think that the patient has an SBO but his PA will evaluate the patient. Impression & Plan Syncope, Ileus Discharge Plan Visit Data Chief Complaint: Fall Stated Complaint: NIROVIRUS, FALLDOWN STEPS, RT SIDE, SYNCOPE ED Provider: Ángel Alarcon Discharge Problem: Syncope, Ileus Patient Disposition: Being Evaluated by Hospitalist Forms Stand Alone Forms: My [facility] Prescriptions Prescriptions: No Action trazodone PO pantoprazole [Protonix] 40 mg Tablet,Delayed Release (Dr/Ec) 40 mg PO BID finasteride 5 mg Tablet 5 mg PO HS gabapentin 300 mg Tablet 300 mg PO HS cholecalciferol (vitamin D3) [Vitamin D3] 50 mcg (2,000 unit) Capsule 100 mcg PO HS levothyroxine 200 mcg Capsule 200 mcg PO QAM Referrals Referrals: Funim Wallace [Primary Care Provider] -
[2024-04-25] MEDS: SODIUM CHLORIDE 0.9% 1,000 ML IV SCH ×2 (17:13→20:41)
--- NOTE | 2024-04-25 17:26 | History & Physical Report ---
Date of Service April 25, 2024 Assessment & Plan (1) Ileus: (2) Syncope: (3) Depression: (4) MELIA on CPAP: (5) Hypothyroidism: (6) GERD (gastroesophageal reflux disease): Plan The patient is a 68-year-old female with a past medical history of GERD, MELIA on CPAP, hypothyroidism who presents to the ED on 04/25/2024 with complaints of fall and a syncopal episode, found to have an ileus versus early SBO Assessment and plan: Ileus versus SBO: After discussion with surgery, determined imaging more consistent with ileus N.p.o., IV fluids, no S/S of bowel perforation, likely secondary to recent viral illness Mechanical fall Syncope Traumatic workup negative, syncopal episode likely secondary to dehydration Recent nausea/vomiting/diarrhea, check orthostatic BPs and continue IV fluids -Check echo, trend troponins Right hip hematoma: Monitor H/H, pain control, type and screen Hx hypothyroidism: Continue levothyroxine Hx MELIA on CPAP Hx GERD: Continue pantoprazole A total of 60 minutes was spent on chart review/reviewing diagnostic data/facilitating plan of care/discussion with consultants Full code DVT prophylaxis: SCDs History of Present Illness Chief Complaint: Fall/syncope/nausea/vomiting/diarrhea Primary Care Provider: Funmi Wallace The patient is a 68-year-old female with a past medical history of hypothyroidism, MELIA on CPAP, GERD who presents to the ED on 04/25/2024 with complaints of nausea/vomiting/diarrhea over the past 3 days. Also reported some body aches, low energy and headache. Patient reported being concerned with having norovirus. Visited a custodial recently and it is going around the facility. She reports falling down 10 wooden steps and fell on her r hip. Also reported a syncopal episode while standing an hour after the incident where she hit her head and nausea. Reported severe r hip pain associated with it. Cannot remember passing out. After passing out, felt hot, dizzy and nauseous. Reported an episode of diarrhea today. Patient's believes the episode only lasted a few seconds. Denies CP, blurred vision, numbness or tingling. Denies any abdominal pain. Reports last formed 4 days ago. On arrival to the ED, labs remarkable for WBC 19, platelets 460, anion gap 12, glucose 136, calcium 10.6, total bili 1.3 Respiratory panel negative A/P CT showed mildly dilated small bowel loops in the mid abdomen that could be ileus versus early small bowel obstruction, no pneumatosis/portal venous gas or free air. Knee x-ray negative Head CT negative Cervical spine CT negative Hip x-ray negative The patient will be admitted for further management of ileus versus SBO Allergies Allergy/AdvReac Type Severity Reaction Status Date / Time NSAIDS (Non-Steroidal Allergy Severe GI SYMPTOMS Verified 01/28/23 09:01 Anti-Inflamma aspirin AdvReac Mild UPSET Verified 01/28/23 09:01 STOMACH Home Medications Medication Instructions Recorded Confirmed Type cholecalciferol (vitamin D3) 50 100 mcg PO HS 12/05/19 04/25/24 History mcg (2,000 unit) capsule (Vitamin D3) finasteride 5 mg tablet 5 mg PO HS 12/05/19 04/25/24 History levothyroxine 200 mcg capsule 200 mcg PO QAM 12/05/19 04/25/24 History pantoprazole 40 mg tablet,delayed 40 mg PO BID 12/05/19 04/25/24 History release (Protonix) trazodone 50 mg PO HS 01/28/23 04/25/24 History Past Med/Surg History Problem List Ileus (Acute) Syncope (Acute) Encounter for annual routine gynecological examination Arthritis of carpometacarpal (CMC) joint of both thumbs Ventral hernia Nocturnal hypoxia (Chronic) "on 2L NC at night" Endometrial cancer (Chronic) surgical intervention - no chemo . radiation Depression (Chronic) MELIA on CPAP (Chronic) Hypothyroidism (Chronic) Urge and stress incontinence (Chronic) Nephrolithiasis (Chronic) hx of Vitamin D deficiency (Chronic) S/P GENEVIEVE (total abdominal hysterectomy) (Chronic) BSO, 2016 Stage 1A endometrial cancer. S/P knee replacement (Chronic) right and left S/P carpal tunnel release (Chronic) right and left S/P herniorrhaphy (Chronic) inguinal and abdominal S/P vicky (Chronic) S/P (Chronic) Medical History GERD (gastroesophageal reflux disease) Barretts esophagus Surgical History S/P laparoscopic procedure laser of endometriosis x 8 times. H/O wisdom tooth extraction Hx of dilation and curettage Social History Smoking Status: Never smoker Second Hand Exposure: No; Do You Dip or Chew Tobacco: No; Hx Alcohol Use: No Hx Substance Use: No Preferred Language: [place] Rican Communication Ability: Effective Cushion Gum Applicator Required: No Beliefs That Will Affect Care: None Current Living Situation: Spouse Feels Safe at Home: Yes Assistive Devices: Contacts Review of Systems Review of Systems: All systems reviewed & are unremarkable except as noted in HPI & below Physical Exam Constitutional: WD/WN, vitals as above + obese Eyes: PERRL, conjunctivae normal, anicteric sclerae ENMT: external ear and nose normal, oropharynx normal Neck: trachea midline, no thyromegaly Respiratory: normal respiratory effort, lungs clear to auscultation Cardiovascular: RRR, no murmur, no edema Gastrointestinal (Abdomen): normal bowel sounds, soft, nontender, no hepatosplenomegaly Musculoskeletal: no cyanosis or clubbing, extremities motor strength 5/5 (r hip bruising and pain with movement) Skin: no rashes, warm and dry Neurologic: PERRL, EOMI, accommodation nl, no face palsy, no dysarthria Psychiatric: A+Ox3, euthymic affect Lymphatic: no cervical or axillary lymphadenopathy Results & Data Results & Data Vital Signs (Past 12 Hours) Vital Signs Temp Pulse Pulse Resp BP BP Pulse Ox 04/25/24 16:37 82 18 131/83 97 04/25/24 15:16 95 H 04/25/24 14:28 36.8 C 87 18 104/75 98 O2 Del Method 04/25/24 16:37 Room Air 04/25/24 15:16 04/25/24 14:28 Room Air Diagnostic Findings Laboratory Results WBC 19.18 K/ul (4.8-10.8) H 04/25/24 14:56 RBC 5.74 M/uL (4.20-5.40) H 04/25/24 14:56 Hgb 16.7 g/dl (12.0-16.0) H 04/25/24 14:56 Hct 49.6 % (37.0-47.0) H 04/25/24 14:56 MCV 86.4 fL (80.0-100.0) 04/25/24 14:56 MCH 29.1 pg (25.0-34.0) 04/25/24 14:56 MCHC 33.7 g/dL (32.0-36.0) 04/25/24 14:56 RDW Std Deviation 41.1 fL (36.4-46.3) 04/25/24 14:56 RDW Coeff of Josh 13.2 % (11.5-14.5) 04/25/24 14:56 Plt Count 460 K/uL (130-400) H 04/25/24 14:56 MPV 9.1 fL (9.4-12.4) L 04/25/24 14:56 Immature Gran % (Auto) 0.5 % 04/25/24 14:56 Neut % (Auto) 85.1 % 04/25/24 14:56 Lymph % (Auto) 7.8 % 04/25/24 14:56 Dickinson % (Auto) 5.8 % 04/25/24 14:56 Eos % (Auto) 0.1 % 04/25/24 14:56 Baso % (Auto) 0.7 % 04/25/24 14:56 Neut # (Auto) 16.31 K/uL (1.40-6.50) H 04/25/24 14:56 Lymph # (Auto) 1.50 K/uL (1.20-3.40) 04/25/24 14:56 Dickinson # (Auto) 1.12 K/uL (0.11-0.59) H 04/25/24 14:56 Eos # (Auto) 0.02 K/uL (0.00-0.50) 04/25/24 14:56 Baso # (Auto) 0.14 K/uL (0.00-0.20) 04/25/24 14:56 Immature Gran # (Auto) 0.09 K/uL (0.01-0.20) 04/25/24 14:56 Sodium 140 mmol/L (136-145) 04/25/24 14:56 Potassium 4.0 mmol/L (3.5-5.1) 04/25/24 14:56 Chloride 100 mmol/L (98-107) 04/25/24 14:56 Carbon Dioxide 28 mmol/L (21-32) 04/25/24 14:56 Anion Gap 12 (3-11) H 04/25/24 14:56 BUN 18 mg/dl (6-23) 04/25/24 14:56 Creatinine 1.03 mg/dl (0.6-1.2) 04/25/24 14:56 Est Cr Clr Drug Dosing Not Reportable 04/25/24 14:56 eGFR 59.97 04/25/24 14:56 BUN/Creatinine Ratio 17.5 (10-20) 04/25/24 14:56 Glucose 136 mg/dl (70-99(Fasting)) H 04/25/24 14:56 Calcium 10.6 mg/dl (8.6-10.3) H 04/25/24 14:56 Total Bilirubin 1.3 mg/dl (0.2-1.0) H 04/25/24 14:56 AST 25 U/L (13-39) 04/25/24 14:56 ALT 24 U/L (7-52) 04/25/24 14:56 Alkaline Phosphatase 85 U/L (34-104) 04/25/24 14:56 Total Protein 8.0 gm/dl (6.0-8.3) 04/25/24 14:56 Albumin 4.8 gm/dl (3.4-5.0) 04/25/24 14:56 Globulin 3.2 gm/dl (2.5-4.0) 04/25/24 14:56 Albumin/Globulin Ratio 1.5 (0.9-2) 04/25/24 14:56 SARS-CoV-2 (PCR) NEGATIVE (Negative) 04/25/24 15:49 Influenza Type A (PCR) Negative (Neg) 04/25/24 15:49 Influenza Type B (PCR) Negative (Neg) 04/25/24 15:49 RSV (RT-PCR) Negative (Neg) 04/25/24 15:49 Impressions Hip X-Ray 04/25/24 14:34 XR hip RT min 2V CLINICAL HISTORY: fall COMPARISON: None FINDINGS: No fracture or dislocation. There are minimal degenerative changes at the right hip. IMPRESSION: No fracture seen. ACT 112: Negative or not required by law. Electronically signed by: Nishant Rm M.D. 04/25/2024 2:[address] 04/25/24 15:17 INDICATION: Pain and injury. COMPARISON: No relevant priors available TECHNIQUE: Axial CT images of the cervical spine were obtained without IV contrast administration. Coronal and sagittal reformations were reviewed. FINDINGS: Cervical vertebral body heights and alignment are maintained. No acute fracture or traumatic subluxation. Mild multilevel disc space narrowing most pronounced at mid cervical levels. Disc bulges at C4-C5, C5-C6 and C6-C7 with mild effacement of the ventral aspect of thecal sac. Multilevel neural foraminal narrowing, right worse than left. Neck soft tissues and lung apices appear grossly unremarkable. IMPRESSION: Mild multilevel degenerative changes. No acute fracture. Electronically signed by Jose R Vasquez 04-25-2024 4:[address] 04/25/24 15:17 INDICATION: Pain and injury. COMPARISON: No relevant priors available TECHNIQUE: Axial CT images of the head were obtained without IV contrast. Coronal and sagittal reformations were reviewed. FINDINGS: [place]-white differentiation is relatively preserved. No mass, mass effect or midline shift. Chronic ischemic white matter changes. Focal nonspecific 5 mm calcification in the left tentorium. No evidence of acute large territorial infarction or acute intracranial hemorrhage. Ventricles appear normal in size. Basal cisterns are patent. No depressed calvarial fracture. IMPRESSION: No acute intracranial process. Electronically signed by Jose R Vasquez 04-25-2024 4:35 PM Knee X-Ray 04/25/24 15:17 INDICATION: Pain and injury. TECHNIQUE: 2 views of the right knee. COMPARISON: No relevant priors. FINDINGS: No acute fracture or dislocation. No lytic or blastic bony lesions seen. Right knee hardware appears intact. Soft tissues appear unremarkable. No joint effusion. IMPRESSION: No acute osseous abnormality evident. Electronically signed by Jose R Vasquez 04-25-2024 4:35 PM Abdomen/Pelvis CT 04/25/24 15:37 INDICATION: Abdominal pain. COMPARISON: CT from 03/01/2017. TECHNIQUE: Axial CT images of the abdomen and pelvis were obtained following IV contrast administration. Coronal and sagittal reformations were reviewed. FINDINGS: Visualized lung bases appear unremarkable. The gallbladder is surgically absent. The liver, spleen, pancreas and adrenal glands appear unremarkable. No hydronephrosis. Subcentimeter left renal cyst noted. Mildly dilated small bowel loops in the midabdomen with scattered air-fluid levels. No pneumatosis/portal venous gas or free air. No evidence of colitis or appendicitis. No drainable fluid collection. Negative for abdominal aortic aneurysm or dissection. The urinary bladder appears unremarkable. No acute osseous abnormality evident. IMPRESSION: Mildly dilated small bowel loops in the midabdomen could relate to ileus or early small bowel obstruction. No pneumatosis/portal venous gas or free air follow-up recommended. Electronically signed by Jose R Vasquez 04-25-2024 4:35 PM Supervising Physician Co-Signing Physician Notes Patient is a 68-year-old female with history of endometrial cancer, MELIA, hypothyroidism, nephrolithiasis, GERD and other medical problems presents with history of nausea, vomiting, diarrhea since 3 days duration. She also reports having generalized body ache and headache. Patient had an accidental fall down steps resulting in right hip pain and syncopal episode. Patient admits to hitting her head. Reports associated nausea as well. Patient denies any urine, stool incontinence, focal weakness, change in vision, speech abnormality. Patient reports having significant right hip pain after the fall. Patient denies any chest pain, dyspnea, fever, abdominal pain. Please review HPI for complete details of presentation. I personally reviewed blood work and imaging studies. Blood work showed leukocytosis 19.18K, hemoglobin 16.7, hematocrit 49.6, platelet count 460, glucose 136, calcium 10.6. Urinalysis pending. CT abdomen showed findings suggestive of possible ileus/early signs of small bowel obstruction. Other imaging studies showed no signs of acute fracture. EKG showed normal sinus rhythm, right bundle branch block, nonspecific ST-T wave changes in inferolateral leads. Physical Exam: Vitals signs as noted above General Appearance:Obese, no apparent distress Head: normocephalic, Atraumatic Eyes: normal inspection, EOMI Neck: supple, Trachea midline Respiratory/Chest: Normal breath sounds, CTA, No accessory muscle use Cardiovascular: S1, S2, No murmur Abdomen/GI:Soft, Non tender, Bowel sounds present Extremities/Musculoskeletal:normal inspection, no edema, R hip Hematoma Neurologic/Psych:AAOX3, grossly no focal neurological deficits Skin: normal color, warm Mechanical fall Syncopal episode Right hip hematoma secondary to the fall Fall precautions, PT OT Monitor H&H and transfuse as needed Avoid anticoagulation for now Syncope Likely concussion secondary to the fall Abnormal name plate stamper for any arrhythmias Check resting echo Possible ileus/SBO Bowel rest, IV fluids Surgery consulted I personally interviewed and examined the patient at bedside. I have reviewed the advanced practitioner's documentation on the date of service referred in note and agree with plan. Patient's care is coordinated with Keli LOPEZ. Please refer to the documentation above for details of patient's presentation and for discussion of other issues. I spent a total [id number] coordinating, documenting, and providing care for this patient excluding time spent in the performance of separately billed services or time spent by another provider/QHP.
[2024-04-25 18:31] LABS: Creatine Kinase 48 U/L (26-192)
[2024-04-25] MEDS ORDERED: SODIUM CHLORIDE 0.9% 100 ML IV PRN (18:37)
[2024-04-25] MEDS ORDERED: SODIUM CHLORIDE 0.9% 50 ML IV PRN (18:37)
[2024-04-25 19:48] LABS: Appearance Urine Clear (Clear); Bilirubin Urine Negative (Negative); Blood Urine Negative (Negative); Color Urine Yellow; Glucose Urine UA Negative (Negative); Ketones Urine 2+ (Negative); Leukocyte Esterase Urine Negative (Negative); Nitrite Urine Negative (Negative); Protein Urine 1+ (Negative); Specific Gravity Urine > 1.045 (1.000-1.030); Urobilinogen Urine Negative (Negative)
--- NOTE | 2024-04-25 19:53 | Surgery Consultation ---
Date of Consultation April 25, 2024 Assessment & Plan (1) Ileus: Patient is a 68-year-old female who presented to the emergency department with complaints of 3 days of nausea, vomiting, and diarrhea. The patient has also been experiencing syncopal episodes and did sustain a fall down a flight of stairs along with another ground-level fall and afterwards she was having significant right hip pain. The patient does have ecchymosis overlying her right hip/thigh region however imaging was negative for any acute fractures/findings. The patient was found to have an elevated WBC at [address] imaging concerning for ileus vs SBO. The patient has not had any additional episodes of vomiting since Wednesday and her last BM was prior to her coming to the hospital today and she denies any abdominal pain at this time. On exam, she is resting comfortably and is nontoxic appearing and has no signs of acute abdomen. From a surgical standpoint recommend the following: -No indication for surgical intervention at this time, will treat patient conservatively. -Keep NPO, IV hydration, and Zofran as needed for nausea. I did discuss with the patient if she has any episodes of vomiting she will require NGT placement and she is in agreement with the plan at this time. -Patient's symptoms are likely secondary to recent viral illness. -Patient also was concerned with right thigh hematoma, continue supportive treatment measures. -Medical management per primary team, surgery will follow Supervising Physician Co-Signing Physician Notes Patient discussed with BRIAN overnight, labs and imaging reviewed, agree with above. Several day history of nausea vomiting and diarrhea presented to the ER after falls. CT scan showed some dilated bowel, likely related to gastroenteritis. Do not feel this represents an obstruction. For full asses sment and plan, see progress note from Mar History of Present Illness Reason for Consultation: Ileus vs SBO History of Present Illness The patient is a 68-year-old female who presented to the emergency department with complaints of nausea, vomiting, diarrhea, and syncope for the last 3 days. She had recently visited a intermediate and believes she may have gotten norovirus due to it going around at the facility. She states the last time she had any vomiting was on Wednesday however she continues to be intermittently nauseous. She has also been having diarrhea, with her last episode being today and she denies any blood in her stools. The patient states that she also had fallen down a flight of stairs and had hit her right hip. She also sustained another fall today when she tried to stand and had a syncopal episode causing her to become nauseous and had fallen and hit her head. Due to the patient having ongoing GI symptoms and sustaining multiple falls with right hip pain she came to the emergency department for further evaluation. Upon workup she had an elevated WBC at 19 and trauma workup was negative for any acute fractures/findings. However, her CT imaging did reveal findings of possible ileus vs SBO. At that time the surgery team was consulted for further evaluation. The patient was seen and evaluated at bedside this evening. The patient is resting comfortably in bed and her only complaint is her ongoing syncope anytime she tries to stand. The patient does have intermittent nausea however denies any abdominal pain or recent episodes of vomiting. The patient is passing gas and last BM was today prior to coming to the hospital. The patient does have a past surgical history of total hysterectomy, cholecystectomy, , hernia repair x2, and multiple laparoscopic surgeries secondary to endometriosis and endometrial cancer. The patient believes she did have one SBO in the past, but states it was managed conservatively and did not require surgical intervention. Allergies Allergy/AdvReac Type Severity Reaction Status Date / Time NSAIDS (Non-Steroidal Allergy Severe GI SYMPTOMS Verified 01/28/23 09:01 Anti-Inflamma aspirin AdvReac Mild UPSET Verified 01/28/23 09:01 STOMACH Home Medications Medication Instructions Recorded Confirmed Type cholecalciferol (vitamin D3) 50 100 mcg PO HS 12/05/19 04/25/24 History mcg (2,000 unit) capsule (Vitamin D3) finasteride 5 mg tablet 5 mg PO HS 12/05/19 04/25/24 History levothyroxine 200 mcg capsule 200 mcg PO QAM 12/05/19 04/25/24 History pantoprazole 40 mg tablet,delayed 40 mg PO BID 12/05/19 04/25/24 History release (Protonix) trazodone 50 mg PO HS 01/28/23 04/25/24 History Patient History Medical History GERD (gastroesophageal reflux disease) Barretts esophagus Surgical History S/P laparoscopic procedure laser of endometriosis x 8 times. H/O wisdom tooth extraction Hx of dilation and curettage Social History Smoking Status: Never smoker Second Hand Exposure: No; Do You Dip or Chew Tobacco: No; Tobacco Cessation Education Requested by Patient: No Hx Alcohol Use: No Hx Substance Use: No Preferred Language: Occitan Communication Ability: Effective Health And Fitness Professor Required: No Beliefs That Will Affect Care: None Current Living Situation: Spouse Other Information That Helps Us Care for You: No Feels Safe at Home: Yes Safety Concerns: Feels Safe At This Time Assistive Devices: Contacts and CPAP Review of Systems Review of Systems: All systems reviewed & are unremarkable except as noted in HPI & below Physical Exam Constitutional: WD/WN, vitals as above Respiratory: normal respiratory effort, lungs clear to auscultation Cardiovascular: RRR, no murmur, no edema Gastrointestinal (Abdomen): Inspection/Auscultation: abdomen normal to inspection and normal bowel sounds; abdomen not distended Percussion/Palpa tion: abdomen soft; abdomen nontender, no guarding, abdomen not rigid and abdomen not firm Musculoskeletal: Hip: + ecchymosis (Hematoma over right hip/thigh region with TTP) Skin: no rashes, warm and dry Psychiatric: A+Ox3, euthymic affect Results & Data Vital Signs (Past 12 Hours) Vital Signs Temp Pulse Pulse Resp BP BP Pulse Ox 04/25/24 18:58 36.7 C 125 H 18 135/85 99 04/25/24 18:07 89 18 129/86 96 04/25/24 16:37 82 18 131/83 97 04/25/24 15:16 95 H 04/25/24 14:28 36.8 C 87 18 104/75 98 O2 Del Method 04/25/24 18:58 Room Air, CPAP 04/25/24 18:07 Room Air 04/25/24 16:37 Room Air 04/25/24 15:16 04/25/24 14:28 Room Air Diagnostic Findings INDICATION: Abdominal pain. COMPARISON: CT from 03/01/2017. TECHNIQUE: Axial CT images of the abdomen and pelvis were obtained following IV contrast administration. Coronal and sagittal reformations were reviewed. FINDINGS: Visualized lung bases appear unremarkable. The gallbladder is surgically absent. The liver, spleen, pancreas and adrenal glands appear unremarkable. No hydronephrosis. Subcentimeter left renal cyst noted. Mildly dilated small bowel loops in the midabdomen with scattered air-fluid levels. No pneumatosis/portal venous gas or free air. No evidence of colitis or appendicitis. No drainable fluid collection. Negative for abdominal aortic aneurysm or dissection. The urinary bladder appears unremarkable. No acute osseous abnormality evident. IMPRESSION: Mildly dilated small bowel loops in the midabdomen could relate to ileus or early small bowel obstruction. No pneumatosis/portal venous gas or free air follow-up recommended. PG Care Time/CCT Total # of Minutes Spent Total Time Spent with Patient: Total time spent is greater than 50% in coordination of care (as documented) at patient's floor/unit and/or counseling patient: Coding Level of Care Code 29496 INT INP/OBS CARE MIN Diagnoses Ileus K56.7
[2024-04-25 20:06] LABS: Bacteria Urine None Seen (None Seen); Hyaline Casts Urine Present /lpf (None Presnt); RBC Urine 0-2 /hpf (0-2); WBC Urine 0-5 /hpf (0-5)
[2024-04-25] MEDS: CHOLECALCIFEROL 25 MCG (1000 UNITS) TAB PO SCH (20:20)
[2024-04-25] MEDS: PANTOprazole 40 MG TAB PO SCH (20:21)
[2024-04-25] MEDS: traZODone HCL 50 MG TAB PO SCH (20:21)
[2024-04-25] MEDS: FINASTERIDE 5 MG TAB PO SCH (20:21)
[2024-04-25] MEDS: ACETAMINOPHEN 325 MG TAB PO PRN (20:50)
[2024-04-25] MEDS: PROMETHAZINE 12.5 MG/50.5 ML BAG IV PRN (21:03)
--- OUTSIDE RECORDS SUMMARY | 2024-04-25 22:06 | External Medical Summary | Continuity of Care Document ---
Author Name Unknown Organization [facility] [address] [facility] [address] [id number] Care Team Providers Care Chief Engineering Division Name Role Phone Rodrigo Hai Shawna Primary Care Physician [phone] Encounter [facility] MEL[facility] [phone] Date(s): 01/20/24 - 01/20/24 [facility] [address] GIULIA [address] [phone] Encounter Diagnosis Multiple pigmented nevi(Discharge Diagnosis) - 01/20/24 Seborrheic keratoses(Discharge Diagnosis) - 01/20/24 History of dysplastic nevus(Discharge Diagnosis) - 01/20/24 Discharge Disposition: Home or Self Care Attending Physician: JESSY Padilla Dawn M Allergies, Adverse Reactions, Alerts No Known Allergies Assessment and Plan Extracted from: Title:Dermatology Office Visit Note Author:Kirstie croft PA-C, Dawn M Date:01/20/24 1.Multiple pigmented nevi chronic and stable -watchful waiting 2.Seborrheic keratoses chronic and stable -SEBORRHEIC KERATOSES - discussed the likely benign and genetic nature of these lesions._ watchful waiting. 3.History of dysplastic nevus Reviewed sun protection with SPF 30 or higher applied every 80 minutes and use of sun protective clothing and hat. Call with questions or concerns. Follow up 1 year. Patient in agreement with plan. Medications finasteride 5 mg oral tablet Start: 01/25/14 8:38:27 AM EDT, See Instructions, Disp# 90 tab, Refills: 1, Half a tab daily, Pharmacy: [facility] Start Date: 01/25/14 Status: Ordered magnesium oxide Start: 01/26/20 11:43:00 AM EDT, 400 mg =, PO, Daily Start Date: 01/26/20 Status: Ordered pantoprazole 40 mg oral delayed release tablet Start: 11/06/19 12:06:00 PM EDT, 1 tab, PO, bid Start Date: 11/06/19 Status: Ordered Synthroid 200 mcg (0.2 mg) oral tablet Start: 07/25/13 8:33:00 AM EDT, 1 tab, PO, Daily Start Date: 07/25/13 Status: Ordered trazodone Start: 09/22/12 9:56:00 AM EDT, 50 mg =, PO, qhs Start Date: 09/22/12 Status: Ordered Tylenol Start: 09/22/12 9:56:00 AM EDT, 650 mg =, PO, q4h, prn Start Date: 09/22/12 Status: Ordered Vitamin D3 Start: 07/25/13 8:35:00 AM EDT, 2,000 Int_Unit =, PO, Daily Start Date: 07/25/13 Status: Ordered ZyrTEC 10 mg oral tablet Start: 01/20/24 9:48:00 AM EDT, 1 tab, PO, Daily, PRN: as needed for allergy symptoms Start Date: 01/20/24 Status: Ordered Mental Status 01/20/24 Barriers to Learning one year None evide nt Mandatory Health Literacy Documentation Yes Health Literacy Communication Barriers N ever Primary Language Indonesian Problem List Condition Confirmation Course Effective Dates Status H ealth Status Informant Alopecia Confirmed Active Anesthesia complication 1 Confirmed Active Right ankle pain Confirmed Active Anxiety Confirmed Active Martinez's esophagus Confirmed Active Benign neoplasm of skin Confirmed Active Multiple nevi Confirmed Active Changing skin lesion Confirmed Active CTS (carpal tunnel syndrome) 2 Confirmed Active Digital mucous cyst Confirmed Active Family history of skin cancer 3 Confirmed Active Gastroesophageal reflux disease Confirmed Active Hamstring muscle strain 4 Confirmed Active Hand pain 5 Confirmed Active History of dysplastic nevus Confirmed Active Hypothyroidism Confirmed Active Inflamed seborrheic keratosis Confirmed Active Knee pain 6 Confirmed Active Lipoma Confirmed Active Actinic keratoses Confirmed Active Osteoarthritis of finger Confirmed Active Pain in finger Confirmed Active Perioral dermatitis Confirmed Active Senile hyperkeratosis Confirmed Active Telogen effluvium Confirmed Active 1family history 2B/L 3mother had bcc 4distal hamstring grade 2 strain 5B/L 6posterior knee pain Diagnosis Diagnosis Type Effective Dates Health Status Clinical Service Informant Multiple pigmented nevi Discharge Diagnosis 01/20/24 History of dysplastic nevus Discharge Diagnosis 01/20/24 Seborrheic keratoses Discharge Diagnosis 01/20/24 Procedures Procedure Date Related Diagnosis Body Site Status EGD - esophagogastroduodenos copy 1, 2, 3 01/21/23 Completed Excision 4 07/16/22 Completed Shave biopsy and cauterization of skin 06/24/22 Completed Upper GI endoscopy 5, 6 01/02/20 C ompleted Punch biopsy 01/31/19 Completed Colonoscopy 7 07/03/16 Completed Upper GI endoscopy 8 07/03/16 Comp leted Upper GI endoscopy 9 05/19/13 Comp leted Knee arthroplasty 10 03/31/13 Comp leted Upper GI endoscopy 11 07/22/12 Com pleted CTR - Carpal tunnel release 12 11/07/07 Completed section 1984 Complete d Cholecystectomy 1984 Completed IH (inguinal hernia) 13 C ompleted Laparoscopy 14 Completed 1- Repeat EGD in 5 years for Barretts. 2- Esophageal mucosal changes secondary to established short-segment Martinez's disease. Biopsied. - A few gastric polyps. - Normal examined duodenum. 3Esophagus Inflamed squamocolumnar mucosa with intestinal metaplasia. COMMENT: In the appropriate clinical and endoscopic setting, the findings are compatible with Martinez?s esophagus. There is no evidence of dysplasia or carcinoma. 4left central upper back lipoma 5Pathology results: Esophagus, Martinez's biopsy: 1) Mild chronic Martinez's esophaguitis with focal intestinal metaplasia is seen. 2) Dysplasia and carcinoma are not seen. 3) The overlying an ddetached strips of stratified squamous epithelium fail to reveal diagnostic histopathologic features of chronic reflux esophagitis. 6Repeat in 3 years. 7Screening colonoscopy with a small, sessile sigmoid polyp at 50 cm. Pathoology results: Colon, sigmoid, polypectomy: hyperplastic polyp 8Relux with Martinez's esophagus and dysphagia with 3 cm Martinez's esophagus. Hiatatl hernia, fundic polyps. Pathology results: A) Stomach, antrum, biopsies 1) Benign gastric mucosa without pathologic change 2) No acitve gastritis identified. 3) Immunohistochemial stain for H. pylori negative. 4) No intestinal metaplasia seen. 5) Negative for dysplasia and malignancy. B) Esophagus, esophagogatric junction, biopsies. 1) Chronic active esophagitis. 2) Intestinal-type epithelium consistent with Martinez's esophagus. 3) Negative for dysplaisia and malignancy. 9Patholoyg results: A) Small bowel, duodenum, biopsies: 1) Benign small bowel mucosa without pathologic change. 2) No active duidenities identified. 3) Negative for dysplasia and malignancy. B) Small bowel, duodenal bulb, biopsies 1) Benign small bowel mucosa without pathologi changes. 2) No active duodenitis identified. 3) Negative for dysplasia and malignancy. C) Stomach, body, biopsies: 1) Benign gastric mucosa without pathologic change. 2) No active gastrities identified. 3) Immunohistochemical stain for H. pylori negative. 4) No intestinal metaplasia seen. 5) Negative for dysplasia and malignancy. D) Stomach, antrum, biopsies: 1) Benign gastric mucosa without pathologic change. 2) No active gastritis identified. 3) Immunohistochemic stain for H. pylori negative. 5) Negative for dysplasia and malignancy. E) Esophagus, esophagogastric junction, biopsies: 1) Intestinal type epithelium consistent with Martinez's esophagus. 2) Benign squamous mucosa. 3) Negative nilo dysplasia and malignancy. 10RTKA 11Pathology results: A) Esophagus, biopsy: 1) Martinez's esophagus (intestinal metaplasia identified). 2) Glandular atypia indeterminate for dysplaia. 3) Negative for high-grade glandular dysplaia or carcinoma. B) Stomach, biopsy of "ulcer" 1) Niminal chronic inflammation, mild edema. 2) negative for H. pylori 3) Negative for ulceration or significant neutrophilic inflammation 4) Negative for intestinal metaplasia, dysplasia or carcinoma. 12B/L 136/13 14x4 Social History Social History Type Response Smoking Status Never smoked cigaret bernice Sex Female Sex Representation Female (finding) Dermatology Outpatient Note * JESSY Padilla, Keerthi Robb: PERFORM Event Display: Dermatology Outpt Note Authored Date: [id number] Chief Complaint yearly check - couple of moles on my feet that are new History of Present Illness Abbi is a 68 year old patient presenting today with a chief complaint ofyearly check - couple of moles on my feet that are new. The patient feels the condition is stable. She denies itching, bleeding, oozing, crusting, evolving lesion. Patient has no past personal history of skin cancer: History of Dysplastic nevus left plantar foot 2018. DN left posterior upper arm 07/13/22 Family history: mother with BCC Patient uses sunscreen. Patient reports history of blistering sunburns / tanning beds. 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 G[place] up in [place]Brother in skilled care she visits and she goes to gym Review of Systems Denies fever, chills, sweats, night sweats, weight loss, headache, visual change, stomach upset diarrhea and joint pain. Physical Exam Constitutional: Generally well appearing, well developed. Appears stated age. Eyes: Lids without noted inflammation, lesion, mass, deformity or drainage. Neurological / Psychiatric: Oriented to person, place and time. Appropriate mood and affect. No notable depression, anxiety or agitation. Integumentary:Exam of the face, hair, lips, eyelids, neck, was conducted and was normal except as detailed below: BACKhyperkeratotic plaques and papules consistent with seborrheic keratoses ARMS, LEGS - many 3-4mm brown reticular macules consistent with nevi LEFT PLANTAR FOOT and LEFT POSTEIOR UPPER ARM - no evidence of recurrent nevus LEFT 5th TOE and RIGHT LATERAL HEEL - brown 1-2mm reticular macules consistent with nevi Assessment/Plan 1.Multiple pigmented nevi chronic and stable -watchful waiting 2.Seborrheic keratoses chronic and stable -SEBORRHEIC KERATOSES - discussed the likely benign and genetic nature of these lesions._ watchful waiting. 3.History of dysplastic nevus Reviewed sun protection with SPF 30 or higher applied every 80 minutes and use of sun protective clothing and hat. Call with questions or concerns. Follow up 1 year. Patient in agreement with plan. Problem List/Past Medical History Ongoing Actinic keratoses Alopecia Anesthesia complication Anxiety Martinez's esophagus Benign neoplasm of skin Changing skin lesion CTS (carpal tunnel syndrome) Digital mucous cyst Family history of skin cancer Gastroesophageal reflux disease Hamstring muscle strain Hand pain History of dysplastic nevus Hypothyroidism Inflamed seborrheic keratosis Knee pain Lipoma Multiple nevi Osteoarthritis of finger Pain in finger Perioral dermatitis Right ankle pain Senile hyperkeratosis Telogen effluvium Procedure/Surgical History EGD - esophagogastroduodenoscopy| Service Date: 01/21/2023Excision| Service Date: 07/16/2022Shave biopsy and cauterization of skin| Service Date: 06/24/2022Upper GI endoscopy| Service Date: 01/02/2020Punch biopsy| Service Date: 01/31/2019Colonoscopy| Service Date: 07/03/2016Upper GI endoscopy| Service Date: 07/03/2016Upper GI endoscopy| Service Date: 05/19/2013Knee arthroplasty| Service Date: 03/31/2013Upper GI endoscopy| Service Date: 07/22/2012CTR - Carpal tunnel release| Service Date: 11/07/2007Cesarean section| Service Date: 1984Cholecystectomy| Service Date: 1984LaparoscopyIH (inguinal hernia) Medications acetaminophen(Tylenol), 650 mg, PO, q4h cetirizine(ZyrTEC 10 mg oral tablet), 10 mg= 1 tab, PO, Daily, PRN cholecalciferol(Vitamin D3), 2000 Int_Unit, PO, Daily finasteride(finasteride 5 mg oral tablet), See Instructions, 1 refills levothyroxine(Synthroid 200 mcg (0.2 mg) oral tablet), 200 mcg= 1 tab, PO, Daily magnesium oxide, 400 mg, PO, Daily pantoprazole(pantoprazole 40 mg oral delayed release tablet), 40 mg= 1 tab, PO, bid trazodone, 50 mg, PO, qhs Allergies NKA Social History Smoking Status Never smoked cigarettes Tobacco - Denies Tobacco Use Family History Cancer: Unknown. Heart disease: Unknown. Health Status Family Member(s) Electronic Signature on File Electronically Reviewed/Signed by: CORBY Arboleda Author Signature Dt/Tm:01/20/2024 10:05 AM Department of Family Medicine Department of Dermatology [facility] Patient Care team information Care Team Personnel Name: MD Wallace H Jeanne Position: Referring Member Role: Primary Care Provider Address: [address] [place] [id number] [place] Name: MD Escobar Roberta L Position: Physician - Sports Medicine [place] Member Role: Lifetime Relationship Address: [address] [place] [address] [place] Care Team Related Persons Name: NAOMI FLOWERS
[2024-04-25] MEDS: MoRPHine SULFATE 2 MG/ML CARP IV PRN (22:09)
[2024-04-26] MEDS: LEVOTHYROXINE SODIUM 200 MCG TABLET PO SCH (05:18)
[2024-04-26 07:20] LABS: BUN Creatinine Ratio 25.4 (10-20); Calcium 9.5 mg/dl (8.6-10.3); Creatinine Clr Calc Pharmacy 75.4 ml/min; Magnesium 1.9 mg/dl (1.7-2.4); Potassium 4.3 mmol/L (3.5-5.1)
--- NOTE | 2024-04-26 07:30 | Hospitalist Progress Note ---
Date of Service April 26, 2024 Assessment & Plan (1) Fall: (2) Hematoma of right hip: (3) Syncope: (4) Ileus: (5) Elevated troponin: (6) RBBB (right bundle branch block): Plan Abbi Sidhu is a 68y/o F with PMHx significant for GERD, MELIA on CPAP, hypothyroidism, nephrolithiasis, endometrial cancer and other problems listed below who presented to the ED on 04/25/2024 with complaints of a recent fall and syncopal episode. R Hip Hematoma S/P Mechanical Fall: Fell down ~10 wooden steps and landed on R hip prior to presentation. Did not hit her head during this fall. Did however sustain a large R hip/outer upper thigh hematoma. Admitting imaging including R hip XR and R knee XR were both unremarkable. Hgb stable. Continue PRN pain control. PT/OT evals. Syncopal Episode: Recent GI illness over the past weekend with poor po intake 2/2 nausea+vomiting; had a syncopal episode shortly after the fall down the steps. Did hit her head off a laundry basket during syncopal episode. Admitting imaging including head CT and cervical spine CT were both unremarkable. Orthostatic vitals reviewed. Telemetry benign thus far. Will check B/L carotid dopplers. Suspect syncope 2/2 dehydration ISO recent GI illness/likely viral gastroenteritis. Resting echo pending. Continue IVF for now. Recent GI Illness Ileus vs. SBO on Admitting CTAP: CTAP on admission with C/F possible ileus vs. early SBO. General surgery --> Imaging/presentation more consistent with ileus. No surgical intervention warranted. Passing flatus. No BM since 04/25 in the morning which was loose - will perform stool studies if she is able to provide a sample. Advanced to clear liquid diet by general surgery this morning, tolerating well. General surgery signed off. Continue to slowly advance KAMLA. Elevated Troponin, RBBB: Telemetry/repeat EKGs negative for evidence of ischemia; only noted RBBB. No chest pain/troponin flat. Likely demand ischemia ISO viral illness and R hip pain on presentation. Other Chronic Medical Conditions: Hypothyroidism/GERD - Continue home meds. Continue CPAP HS for MELIA. DVT Prophylaxis: SCDs/TEDs ISO hematoma. Code Status: FULL CODE PCP: Funmi Wallace Disposition: Downgrading to Med/Telemetry; likely discharge in the 1-3 days depending on her clinical course. Patient seen in collaboration with Dr. Esparza. Please see addendum. I spent a total of 40 minutes coordinating, documenting, and providing care for this patient excluding time spent in the performance of separately billed services or time spent by another provider/QHP. This included personally reviewing all current laboratories and imaging studies, medical reconciliation, outpatient chart review and discussion with specialists. This chart was completed in part utilizing Speech Voice Recognition Software. Grammatical errors, random word insertions, pronoun errors, and incomplete sentences are an occasional consequence of this system due to software limitations, ambient noise, and hardware issues. Any formal questions or concerns about the content, text, or information contained within the body of this dictation should be directly addressed to the provider for clarification. Admission and Anticipated Discharge Date Admission Date: April 25, 2024 Supervising Physician Co-Signing Physician Notes I have seen and discussed the case with the collaborating advanced practitioner. I agree with the above PN. I have reviewed and confirmed the patients medical history, the findings on physical examination, and the patients diagnosis and treatment plan with Chip JIMÉNEZ and agree with the information documented. Patient doing well and improving overall Surgery suspects 2/2 gastroenteritis Hgb from16->13 which is baseline level, suspect that its related to 3L IVF WBC down, Platelets as well supporting hemodilution Suspect syncope 2/2 dehydration ECHO stable no tele events follow up orthostatics continue volume resus advance diet as tolerated PT/OT I spent a total of 10 minutes coordinating, documenting, and providing care for this patient excluding time spent in the performance of separately billed services. All of the aforementioned completed outside of collaborating with the assigned advanced practitioner for a full treatment plan. I have reviewed the advanced practitioner's documentation, and I agree with, and take responsibility for the plan of care Subjective Patient seen and examined at bedside this morning in room S229-2. Her lightheadedness with sitting up/movement has mostly resolved. Denies any visual changes or dizziness with changes in positioning today. She was up and walking to the restroom earlier this morning without any issue. Denies any N/V or abdominal pain. She is tolerating a clear liquid diet without issue. Last BM was yesterday morning. Only had 1 episode of diarrhea prior to presenting to the ED yesterday. Had her resting echo done this morning. Sustained R hip hematoma during fall yesterday down steps. R hip is feeling better - still painful but now she can tolerate steps on her RLE, which she couldn't do much of yesterday. Review of Systems Review of Systems: At least ten systems reviewed and negative, except as noted in the subjective section. Physical Exam Physical Exam: General: WD/WN, NAD, sitting up in bed, very pleasant, conversing appropriately. A+Ox3, euthymic affect. HEENT: Normocephalic, atraumatic. Conjunctivae normal. External ear and nose normal, oropharynx normal. Respiratory: Normal respiratory effort, lungs clear to auscultation, no wheeze/rales/rhonchi. No accessory muscle use. Cardiovascular: Regular rate, rhythm, normal peripheral pulses, no BLE edema. Vessels: No JVD. Abdomen/GI: Normoactive bowel sounds, soft, nondistended, nontender to palpation in all quadrants. Extremities/Musculoskeletal: Extremities motor strength intact, large R hip/upper outer thigh hematoma with mild TTP + swelling. Neurologic: No overt focal deficits, CN's II-XI not formally tested but appear grossly intact bilaterally. Results & Data Results & Data Vital Signs (Past 12 Hours) Vital Signs Temp Pulse Pulse Resp BP Pulse Ox O2 Del Method 04/26/24 07:26 88 04/26/24 03:27 36.5 C 85 18 122/78 96 BiPAP 04/25/24 22:38 36.6 C 90 18 134/82 95 Room Air Laboratory Results Short CBC 04/25/24 04/26/24 Range/Units 14:56 06:36 WBC 19.18 H 11.30 H (4.8-10.8) K/ul Hgb 16.7 H 13.4 D (12.0-16.0) g/dl Hct 49.6 H 39.5 (37.0-47.0) % Plt Count 460 H 343 (130-400) K/uL BMP 04/25/24 04/26/24 14:56 06:36 Sodium 140 139 Potassium 4.0 4.3 Chloride 100 105 Carbon Dioxide 28 27 BUN 18 18 Creatinine 1.03 0.71 D Glucose 136 H 84 Calcium 10.6 H 9.5 Cardiac Enzymes 04/25/24 Range/Units 14:56 Total Creatine Kinase 48 (26-192) U/L Liver Function 04/25/24 Range/Units 14:56 Total Bilirubin 1.3 H (0.2-1.0) mg/dl AST 25 (13-39) U/L ALT 24 (7-52) U/L Alkaline Phosphatase 85 (34-104) U/L Albumin 4.8 (3.4-5.0) gm/dl Urine 04/25/24 Range/Units Unknown Urine Color Yellow Urine Appearance Clear (Clear) Urine pH 5.0 (4.5-7.5) Ur Specific [place] > 1.045 H (1.000-1.030) Urine Protein 1+ H (Negative) Urine Glucose (UA) Negative (Negative) (1) Fall Encounter type: initial encounter Qualified Code(s): W19.XXXA - Unspecified fall, initial encounter (2) Hematoma of right hip Encounter type: initial encounter Qualified Code(s): S70.01XA - Contusion of right hip, initial encounter (3) Syncope Syncope type: unspecified Qualified Code(s): R55 - Syncope and collapse
--- NOTE | 2024-04-26 07:46 | Surgery Progress Note ---
Date of Service April 26, 2024 Assessment & Plan (1) Ileus: Plan: abd soft non-tender passing flatus vss , labs pending will trial clear liquids this AM will follow Admission and Anticipated Discharge Date Admission Date: April 25, 2024 Supervising Physician Co-Signing Physician Notes Patient seen and examined, labs and imaging reviewed, agree with above. Recent history of apparent gastrointestinal infection, present to the emergency department after falling several times. On exam she is afebrile stable vitals. Her abdomen is soft, nondistended, nontender. She appears to be tolerating clears. Labs unremarkable. CT personally viewed and interpreted agree with the assessment of dilated bowel, no transition point to indicate obstruction. This likely represents a gastroenteritis, do not believe this is a bowel obstruction. No surgical intervention indicated. May advance diet as tolerated, surgery will sign off, call with questions or concerns. Subjective denies abd pain, n/v passing flatus Review of Systems Constitutional: no fever and no chills Respiratory: no dyspnea Cardiovascular: no chest pain Gastrointestinal: no abdominal pain, no nausea and no vomiting Genitourinary: no dysuria Physical Exam Constitutional: well developed, cooperative and comfortable; no acute distress Respiratory: normal respiratory effort; no respiratory distress Cardiovascular: Rate/Rhythm: regular rate Gastrointestinal (Abdomen): Inspection/Auscultation: abdomen not distended Percussion/Palpation: abdomen soft; abdomen nontender Results & Data Vital Signs (Past 12 Hours) Vital Signs Temp Pulse Pulse Resp BP Pulse Ox O2 Del Method 04/26/24 07:30 98.4 F 90 20 113/74 94 Room Air 04/26/24 07:26 88 04/26/24 03:27 97.7 F 85 18 122/78 96 BiPAP 04/25/24 22:38 97.9 F 90 18 134/82 95 Room Air PG Care Time/CCT Total # of Minutes Spent Total Time Spent with Patient: Total time spent is greater than 50% in coordination of care (as documented) at patient's floor/unit and/or counseling patient: Coding Level of Care Code 05348 SUB INP/OBS CARE 25MIN Diagnoses Ileus K56.7
[2024-04-26 07:52] LABS: Hematocrit (blood only) 39.5 % (37.0-47.0); Hemoglobin 13.4 g/dl (12.0-16.0); Mean Corpuscular Hemoglobin 29.1 pg (25.0-34.0); Mean Corpuscular Hgb Conc 33.9 g/dL (32.0-36.0); Mean Corpuscular Volume 85.7 fL (80.0-100.0); Platelet Count 343 K/uL (130-400); RDW Coefficient of Variation 13.2 % (11.5-14.5); RDW Standard Deviation 41.2 fL (36.4-46.3); Red Blood Count 4.61 M/uL (4.20-5.40)
--- NOTE | 2024-04-26 09:32 | Electrocardiogram Report ---
Test Reason : Blood Pressure : */* mmHG Vent. Rate : 93 BPM Atrial Rate : 93 BPM P-R Int : 158 ms QRS Dur : 126 ms QT Int : 378 ms P-R-T Axes : 61 266 28 degrees QTcB Int : 469 ms Normal sinus rhythm Right bundle branch block Possible Lateral infarct , age undetermined Inferior infarct (cited on or before 08-Mar-2017) Abnormal ECG When compared with ECG of 08-Mar-2017 15:21, Right bundle branch block is now Present Borderline criteria for Lateral infarct are now Present Questionable change in initial forces of Inferior leads Confirmed by Quinton Lauren ([id number]) on 04/26/2024 9:32:02 AM Referred By: REFERRED SELF Confirmed By: Quinton Lauren
--- NOTE | 2024-04-26 09:42 | Electrocardiogram Report ---
Test Reason : Blood Pressure : */* mmHG Vent. Rate : 87 BPM Atrial Rate : 87 BPM P-R Int : 174 ms QRS Dur : 132 ms QT Int : 394 ms P-R-T Axes : 77 269 71 degrees QTcB Int : 474 ms Normal sinus rhythm Right bundle branch block Inferior infarct (cited on or before 08-Mar-2017) Abnormal ECG When compared with ECG of 25-Apr-2024 14:53, (unconfirmed) Borderline criteria for Lateral infarct are no longer Present Confirmed by Quinton Lauren ([id number]) on 04/26/2024 9:42:03 AM Referred By: REFERRED SELF Confirmed By: Quinton Lauren
--- NOTE | 2024-04-26 17:35 | Ultrasound Report ---
EXAM: US Duplex Bilateral Extracranial Arteries INDICATION: Syncope. Fall. TECHNIQUE: Real-time duplex ultrasound scan of the extracranial arteries integrating B-mode two-dimensional vascular structure, Doppler spectral analysis and color flow Doppler imaging. COMPARISON: No relevant prior studies available. FINDINGS: Right common carotid artery: Mild intimal thickening. Peak systolic velocity 84 cm/s. No occlusion or segmental stenosis on color flow and spectral Doppler imaging. Right internal carotid artery: Mild intimal thickening in the bulb. Peak systolic velocity 109 cm/s. No occlusion or segmental stenosis on color flow and spectral Doppler imaging. Right external carotid artery: No abnormality noted. No occlusion or segmental stenosis on color flow and spectral Doppler imaging. Right vertebral artery: No abnormality noted. Antegrade flow. Right ICA/CCA ratio: 1.3. Within normal limits. Left common carotid artery: Diffuse intimal thickening noted. Peak systolic velocity 92 cm/s. d. No occlusion or segmental stenosis on color flow and spectral Doppler imaging. Left internal carotid artery: Mild intimal thickening in the bulb. Peak systolic velocity 131 cm/s. No occlusion or segmental stenosis on color flow and spectral Doppler imaging. Left external carotid artery: No abnormality noted. No occlusion or segmental stenosis on color flow and spectral Doppler imaging. Left vertebral artery: No abnormality noted. Antegrade flow. Left ICA/CCA ratio: 1.4. Within normal limits. Lymph nodes: No abnormality noted. No lymphadenopathy. CAROTID STENOSIS REFERENCE USING IAC CRITERIA: Mild - <50% stenosis. ICA PSV is less than 180 cm/s and plaque or intimal thickening is visible. Moderate - 50-69% stenosis. ICA PSV is 180 to 230 cm/s and plaque is visible. Severe - 70-94% stenosis. ICA PSV is more than 230 cm/s and visible plaque with lumen narrowing is seen. Near occlusion - 95-99% stenosis. ICA PSV is variable and significant plaque with luminal narrowing is seen. Occluded - 100% stenosis. No flow identified. IMPRESSION: There is no internal carotid stenosis. ACT 112: Negative or not required by law. Electronically signed by Clotilde Caal 04-26-2024 5:35 PM
[2024-04-26] MEDS: MAGNESIUM SULFATE / D5W 1 GM/100 ML BAG IV ONE (18:24)
[2024-04-26] MEDS ORDERED: Nursing to Pharmacy Communication SCH (19:30)
[2024-04-27 04:13] VITALS: RESP 18
[2024-04-27 06:58] LABS: Hematocrit (blood only) 39.9 % (37.0-47.0); Hemoglobin 13.3 g/dl (12.0-16.0); Mean Corpuscular Hemoglobin 29.1 pg (25.0-34.0); Mean Corpuscular Hgb Conc 33.3 g/dL (32.0-36.0); Mean Corpuscular Volume 87.3 fL (80.0-100.0); Mean Platelet Volume 9.6 fL (9.4-12.4); Platelet Count 426 K/uL (130-400); RDW Coefficient of Variation 13.3 % (11.5-14.5); RDW Standard Deviation 42.5 fL (36.4-46.3); Red Blood Count 4.57 M/uL (4.20-5.40); White Blood Count 10.81 K/ul (4.8-10.8)
[2024-04-27 07:19] VITALS: O2SAT 97
[2024-04-27 07:22] LABS: BUN Creatinine Ratio 14.1 (10-20); Calcium 9.5 mg/dl (8.6-10.3); Creatinine Clr Calc Pharmacy 76.2 ml/min; Magnesium 1.9 mg/dl (1.7-2.4); Potassium 3.4 mmol/L (3.5-5.1)
[2024-04-27] MEDS: POTASSIUM CHLORIDE CRTAB 20 MEQ TABCR PO STA (07:42)
--- NOTE | 2024-04-27 10:08 | Electrocardiogram Report ---
Test Reason : Blood Pressure : */* mmHG Vent. Rate : 72 BPM Atrial Rate : 72 BPM P-R Int : 184 ms QRS Dur : 136 ms QT Int : 422 ms P-R-T Axes : 31 -63 6 degrees QTcB Int : 462 ms Normal sinus rhythm Right bundle branch block Left anterior fascicular block Bifascicular block Cannot rule out Inferior infarct (cited on or before 08-Mar-2017) Abnormal ECG When compared with ECG of 26-Apr-2024 05:20, Left anterior fascicular block is now Present Questionable change in initial forces of Inferior leads T wave inversion now evident in Inferior leads Confirmed by Quinton Lauren ([id number]) on 04/27/2024 10:08:16 AM Referred By: REFERRED SELF Confirmed By: Quinton Lauren
[2024-04-27 10:11] LABS: Adenovirus F 40/41 PCR Not Detected (NotDetected); Astrovirus PCR Not Detected (NotDetected); Campylobacter PCR Not Detected (NotDetected); Cryptosporidium PCR Not Detected (NotDetected); Cyclospora cayetanensis PCR Not Detected (NotDetected); Entamoeba histolytica PCR Not Detected (NotDetected); Enteroaggregative E.coli(EAEC) Not Detected (NotDetected); Enteropathogenic E.coli (EPEC) Not Detected (NotDetected); Enterotoxigenic E.coli (ETEC) Not Detected (NotDetected); Giardia lamblia PCR Not Detected (NotDetected); Norovirus GI/GII PCR Not Detected (NotDetected); Plesiomonas shigelloides PCR Not Detected (NotDetected); Rotavirus A PCR Not Detected (NotDetected); Salmonella PCR Not Detected (NotDetected); Sapovirus PCR Not Detected (NotDetected); Shiga-like Toxin E.coli (STEC) Not Detected (NotDetected); Shigella/Enteroinvasive E.coli Not Detected (NotDetected); Vibrio cholerae PCR Not Detected (NotDetected); Vibrio species PCR Not Detected (NotDetected); Yersinia enterocolitica PCR Not Detected (NotDetected)
[2024-04-27] MEDS: LIDOCAINE 5% 1 PATCH TD SCH (10:25)
--- NOTE | 2024-04-27 10:37 | Discharge Summary ---
<Statement entered by Mark Sams DO - 04/27/24 13:42> I have seen and examined the patient and have discussed the case with the advance practice provider. I have reviewed the advanced practitioner's documentation, and I agree with, and take responsibility for that plan of care. Patient states he feels significantly improved. Tolerating a diet. Eager to get home. Pain is controlled. Discharge plans as outlined below I spent a total of 15 minutes coordinating, documenting, and providing care for this patient excluding time spent by another provider/QHP. Discharge Summary Date of Service April 27, 2024 Principal Dx & Hospital Course #1 = Principal Diagnosis (1) Fall: (2) Hematoma of right hip: (3) Syncope: (4) Ileus: (5) Elevated troponin: (6) Bifascicular block: Plan Abbi Sidhu is a 68y/o F with PMHx significant for GERD, MELIA on CPAP, hypothyroidism, nephrolithiasis, endometrial cancer and other problems listed below who presented to the ED on 04/25/2024 with complaints of a recent fall and syncopal episode. R Hip Hematoma S/P Mechanical Fall: Patient fell down approximately 10 wooden steps and landed on her right hip prior to presentation. She did not hit her head during this fall, however she did sustain a large hematoma to her right hip/outer upper thigh region. Admitting imaging including right hip XR and right knee XR are both unrema rkable. Hgb remained stable. Can continue PRN pain control with lidocaine patches, ice/heat therapy, topical Voltaren gel and Tylenol upon discharge. She was seen and evaluated by PT/OT. She is being discharged back home in good condition. Syncopal Episode - Suspect 2/2 Dehydration ISO Viral Gastroenteritis: Recent viral gastroenteritis over the past weekend prior to presentation with poor oral intake secondary to nausea/vomiting/diarrhea. She unfortunately had a syncopal event shortly after the fall down down her steps as per above. She did hit her head off of a laundry basket during this syncopal episode. Admitting imaging including head CT and cervical spine CT were both unremarkable. Suspect syncopal event likely secondary to dehydration ISO viral gastroenteritis. She was managed with IV fluids and further syncopal workup including resting echo and bilateral carotid Doppler ultrasounds were unremarkable. Her lightheadedness/dizziness and palpitations had completely resolved at time of discharge. Ileus on Admitting CTAP ISO Viral Gastroenteritis: CTAP on admission with C/F possible ileus vs. early SBO. General surgery saw and evaluated the patient. Patient without abdominal pain. Imaging and presentation more consistent with ileus rather than SBO. No surgical intervention was warranted. She was managed conservatively with slow advancement in her diet. Did perform stool PCR which was negative. Elevated Troponin - ACS Ruled-Out Bifascicular Block Noted on Repeat EKG: Patient was without any complaints of chest pain. Troponin flattened in the 20s. No ST changes noted on repeat EKGs. Telemetry was benign. Suspect troponin elevated secondary to demand ischemia ISO viral gastroenteritis and right hip pain. She was noted to have a bifascicular block development on repeat EKG prior to discharge but was ultimately asymptomatic therefore she did not warrant inpatient cardiology evaluation. Other Chronic Medical Conditions: Hypothyroidism/GERD - Continue home meds on discharge. Continue CPAP HS for MELIA. PCP: Funmi Wallace Disposition: Patient is being discharged home in good condition with close PCP follow-up next week. Patient seen in collaboration with Dr. Sams. Please see addendum. I spent a total of 50 minutes coordinating, documenting, and providing care for this patient excluding time spent in the performance of separately billed services or time spent by another provider/QHP. This included personally reviewing all current laboratories and imaging studies, medical reconciliation, outpatient chart review and discussion with specialists. This chart was completed in part utilizing Speech Voice Recognition Software. Grammatical errors, random word insertions, pronoun errors, and incomplete sentences are an occasional consequence of this system due to software limitations, ambient noise, and hardware issues. Any formal questions or concerns about the content, text, or information contained within the body of this dictation should be directly addressed to the provider for clarification. Notes For Next Care Provider Patient noted to have bifascicular block on repeat EKG prior to discharge. She remains asymptomatic however would warrant outpatient repeat EKG testing to monitor this. Suspect syncopal event was likely 2/2 to dehydration ISO recent viral gastroenteritis. Further workup including resting echo and b/l carotid Doppler ultrasound were both unremarkable. satellite project site monitor was benign. With that being said, however, she may benefit from outpatient Zio patch monitoring to check for underlying arrhythmia ISO newly diagnosed bifascicular block. Medication Changes From Visit No medication changes were made this admission. Admission HPI Per Admitting Provider The patient is a 68-year-old female with a past medical history of hypothyroidism, MELIA on CPAP, GERD who presents to the ED on 04/25/2024 with complaints of nausea/vomiting/diarrhea over the past 3 days. Also reported some body aches, low energy and headache. Patient reported being concerned with having norovirus. Visited a longterm recently and it is going around the facility. She reports falling down 10 wooden steps and fell on her r hip. Also reported a syncopal episode while standing an hour after the incident where she hit her head and nausea. Reported severe r hip pain associated with it. Cannot remember passing out. After passing out, felt hot, dizzy and nauseous. Reported an episode of diarrhea today. Patient's believes the episode only lasted a few seconds. Denies CP, blurred vision, numbness or tingling. Denies any abdominal pain. Reports last formed BM 4 days ago. On arrival to the ED, labs remarkable for WBC 19, platelets 460, anion gap 12, glucose 136, calcium 10.6, total bili 1.3 Respiratory panel negative A/P CT showed mildly dilated small bowel loops in the mid abdomen that could be ileus versus early small bowel obstruction, no pneumatosis/portal venous gas or free air. Knee x-ray negative Head CT negative Cervical spine CT negative Hip x-ray negative The patient will be admitted for further management of ileus versus SBO Admission Exam Per Admitting Provider Constitutional: WD/WN, vitals as above + obese Eyes: PERRL, conjunctivae normal, anicteric sclerae ENMT: external ear and nose normal, oropharynx normal Neck: trachea midline, no thyromegaly Respiratory: normal respiratory effort, lungs clear to auscultation Cardiovascular: RRR, no murmur, no edema Gastrointestinal (Abdomen): normal bowel sounds, soft, nontender, no hepatosplenomegaly Musculoskeletal: no cyanosis or clubbing, extremities motor strength 5/5 (r hip bruising and pain with movement) Skin: no rashes, warm and dry Neurologic: PERRL, EOMI, accommodation nl, no face palsy, no dysarthria Psychiatric: A+Ox3, euthymic affect Lymphatic: no cervical or axillary lymphadenopathy Discharge Exam General: WD/WN, NAD, sitting up in chair at bedside, very pleasant, conversing appropriately. A+Ox3, euthymic affect. HEENT: Normocephalic, atraumatic. Conjunctivae normal. External ear and nose normal, oropharynx normal. Respiratory: Normal respiratory effort, lungs clear to auscultation, no wheeze/rales/rhonchi. No accessory muscle use. Cardiovascular: Regular rate, rhythm, normal peripheral pulses, no BLE edema. Vessels: No JVD. Abdomen/GI: Normoactive bowel sounds, soft, nondistended, nontender to palpation in all quadrants. Extremities/Musculoskeletal: Extremities motor strength intact, large R hip/upper outer thigh hematoma with mild TTP + swelling. Neurologic: No overt focal deficits, CN's II-XI not formally tested but appear grossly intact bilaterally. Updated Medication List Medication Instructions Recorded Confirmed Type cholecalciferol (vitamin D3) 50 100 mcg PO HS 12/05/19 04/25/24 History mcg (2,000 unit) capsule (Vitamin D3) finasteride 5 mg tablet 5 mg PO HS 12/05/19 04/25/24 History levothyroxine 200 mcg capsule 200 mcg PO QAM 12/05/19 04/25/24 History pantoprazole 40 mg tablet,delayed 40 mg PO BID 12/05/19 04/25/24 History release (Protonix) trazodone 50 mg PO HS 01/28/23 04/25/24 History Hospital Stay Data Consultations 04/25/24 16:42 ED Decision to Admit Stat 04/25/24 18:58 Consult General Surgery Routine Diagnostic Imagining Performed 04/25/24 15:17 CT cervical spine wo con Stat CT head/brain wo con Stat 04/25/24 15:37 CT abd pelvis IV con only Stat 04/26/24 15:09 Carotid duplex [US carotid doppler BI] Routine Pending Results Patient Have Any Pending Studies at Discharge: Yes Discharge Instructions Given to Patient (Per Discharging Provider) Abbi, carie were admitted to [facility] for further evaluation after sustaining a fall and syncopal event at home. You sustained a right hip/upper outer thigh hematoma during your fall. We did perform an x-ray of your right hip which was negative for any evidence of fracture. A hematoma is basically collection of blood outside your blood vessels. This happens when blood leaks into the tissues on your skin often after an injury. You will notice bruising and it can often feel swollen or tender. This happens because the blood gets trapped in the tissue and causes inflammation. Over time your body will reabsorb the blood. The healing may take days to weeks. Continue to rest, ice and elevate your right leg to help reduce swelling and pain. You can also utilize a heating pad, lidocaine patches and topical Voltaren gel to help with pain control. It is recommended that you avoid NSAIDs (such as Aleve and Motrin) until this area heals as these medications can increase bleeding or prolong the healing process. Since the goal with a hematoma is to allow the blood to stay in place and clot properly, using NSAIDs could potentially make the situation worse. Instead, you can manage pain with alternatives like acetaminophen (Tylenol), which doesnt affect blood clotting. You were found to be quite dehydrated this admission which is very common with viral gastroenteritis. When you have viral gastroenteritis, symptoms like vomiting and diarrhea can lead to the loss of a lot of fluids and electrolytes. This can cause dehydration, especially if you're not able to keep fluids down or replace what you've lost. Syncope, or fainting, can be a result of dehydration. When you're dehydrated, your body doesn't have enough fluids to maintain normal blood volume and pressure. This can cause a drop in blood pressure (hypotension), which can reduce blood flow to the brain, leading to fainting or lightheadedness. In your case, this is what we suspect occurred. You were successfully treated with IV fluids. Thankfully further syncopal work- up imaging studies including echocardiogram (ultrasound of heart) and bilateral carotid Doppler (type of ultrasound test that examines the blood flow through the carotid arteries - which are located on each side of your neck) were unremarkable as we had discussed. Your cardiac monitoring was also reassuring a nd negative for any cardiac arrhythmias (irregular heartbeats or abnormal heart rhythms). You were noted to have a bifascicular block on repeat EKGs while you were admitted which we discussed. A bifascicular block is a condition where theres a delay or block in the electrical impulses that travel through two of the three main fascicles (branches) of the heart's bundle of His. The bundle of His is a group of fibers that carry electrical signals to the ventricles (lower chambers of the heart), helping coordinate the heart's rhythm. Given your symptom improvement (resolution of palpitations/lightheadedness) and reassuring echocardiogram, you did not warrant inpatient cardiology evaluation. If you were to develop any further symptoms (such as lightheadedness/dizziness, fainting /syncope, palpitations), then you should return to the ED for further evaluation . Bifascicular blocks are usually benign (harmless) however they do warrant further evaluation if you would start to experience such symptoms (as previously stated) like we had discussed. You were incidentally found to have a ileus on admitting CT imaging of your abdomen/pelvis. Ileus is a condition where the normal movement of the intestines slows down or stops. This can cause a build-up of food, fluid, and gas in the intestines, leading to discomfort and bloating. Its not the same as a blockage (obstruction), but it can have similar symptoms, like abdominal pain, nausea, and vomiting. You were seen and evaluated by general surgery regarding this finding whom recommended conservative treatment with slow advancement in your diet. When someone has viral gastroenteritis, also known as the stomach flu, it can sometimes lead to ileus, or a temporary halt in the normal movement of the intestines. This happens because the virus that causes gastroenteritis can irritate the gut, disrupt normal digestion, and slow down peristalsis the muscle contractions that move food through the intestines. We did stool testing as well which was negative. Please continue to advance your diet slowly and as tolerated over the next few days to weeks. RECOMMENDATIONS FOR FOLLOW-UP: PCP follow-up appointment scheduled with Dr. Wallace on 05/02/2024 at 3:30PM. Please attend this appointment as scheduled! Seek medical attention if you have: * temperature above 101F * chest pain or trouble breathing * abdominal pain, nausea, vomiting * diarrhea, dark stools or bloody stools * any unanswered questions or concerns Call 911 if symptoms are severe. Please take good care of yourself! It has been a pleasure taking care of you. If you have any questions regarding your recent hospitalization please contact [facility] and request Nicolasa Estrada @ [phone]. Total Time Total Time Spent Total Time Spent (In Minutes): 50
[2024-04-27 11:25] VITALS: BP 126/84; TEMP 97.7
[2024-04-27 12:05] VITALS: PULSE 78
[2024-04-27] MEDS ORDERED: DICLOFENAC SOD 1% GEL 100 GM TUBE EXT SCH (14:00)
== END 2024-04-27 13:00 | disposition home or self-care (01) | DRG 392 ==
LOC: ED 14:21 → 2S 17:16 → SUATTDRO 17:16 → 2S 18:07 → 2N 04-26 16:08